=== PATIENT | male | born 1955 | race Caucasian/White ===

== ENCOUNTER 2016-07-10 06:00 | Day surgery (SDC) | payer MEDICAID ==
[~2016-07-10] VITALS: Ht 175.3 cm; Wt 95.3 kg
[~2016-07-10 06:00] MED LIST: NIASPAN500 MG PO; SAW PALMETTO450 MG PO
[2016-07-10 06:21] VITALS: BP 121/78; Ht 175.3 cm; Wt 95.3 kg
--- NOTE | 2016-07-10 09:13 | NUR ---
DMITRIY CHILDRESS TO ROOM
--- NOTE | 2016-07-10 11:39 | NUR ---
3025 POST HERNIA REPAIR AND LIPOMA REMOVAL. SLOW TO MOVE FROM STRETCHER TO BED. AWAKE AND RESP EVEN AND NONLABORED. DENIES NAUSEA. HAS DRESING TO RT FLANK C/D/I NO BLEEDING. HAS BULKY DRESSING TO HERNIA SITE AND ABDOMINAL BINDER ON.PAIN SOME BETTER AFTER DILAUDID.
--- NOTE | 2016-07-10 12:23 | NUR ---
1205 FULL LIQUIDS ORDERED TOLERATINF WATER. ABDOMINAL BINDER ON.
--- NOTE | 2016-07-10 12:56 | NUR ---
1235 TAKING IN SOME FULL LIQUIS. ENCOURAGED TO MOVE AROUND AND IV FLUIDS INFUSING RT ARM NO REDNESS OR SWELLING. ALSO ENCOURAGED TO COUGH AND DEEP BREATHE.
--- NOTE | 2016-07-10 14:15 | NUR ---
1335 UP TO THE BR AND VOIDED. BACK TO BED.
--- NOTE | 2016-07-10 14:16 | NUR ---
1350 IV DCD CATHETER INTACT. WENT OVER DISCHARGE INSTRUCTIONS AND TOLD NO LIFTING OR STRAINING AND MAY NEED A STOOL SOFTENER OR SOMETHING TO HELP GO TO THE BATHROOM. GAVE HERNIA DISCHARGE INSTRUCTION SHEET AND DENIES NEED FOR PAIN MEDS. SCRIPT GIVEN.
--- NOTE | 2016-07-10 14:17 | NUR ---
1405 TO HOME VIA W/C WITH FAMILY.
--- NOTE | 2016-08-20 10:17 | HP ---
PATIENT: CONCETTA ALICEA MEDICAL RECORD: [id number] ACCOUNT: [id number] LOCATION:[facility] : 57 ADMISSION DATE: 07/10/16 HISTORY AND PHYSICAL EXAMINATION CHIEF COMPLAINT: Umbilical hernia and also lipoma. HISTORY OF PRESENT ILLNESS: The patient is here for a laparoscopic umbilical hernia repair as well as excision of a right flank lipoma. In the holding area, the patient was able to localize the lipoma for me, which had ill-defined margins. The risks, possible complications and alternatives to procedure were explained to the patient. He elects to proceed. PAST MEDICAL AND SURGICAL HISTORY: Hyperlipidemia. HOME MEDICATIONS: Niacin. ALLERGIES: No known drug allergies. SOCIAL HISTORY: Nonsmoker. REVIEW OF SYSTEMS: Negative for coronary artery disease, hypertension. Negative for CVA or seizures. Negative for diabetes or thyroid problems. Review of systems is negative other than as is described above. PHYSICAL EXAMINATION: GENERAL: The patient does not appear acutely ill. He does not appear chronically ill. VITAL SIGNS: Reviewed. HEAD: External ears appear normal. EYES: Extraocular movements are intact. NECK: Trachea is midline. CHEST: No intercostal retractions. PULMONARY: Nonlabored, no stridor. ABDOMEN: Umbilical hernia which is partially reducible at least, also abdominal wall rubbery subcutaneous mass is somewhat movable in the right flank. IMPRESSION: 1. Symptomatic umbilical hernia. 2. Probable right flank/right upper quadrant lipoma. PLAN: As described above. TRANSINT:[id number] Voice Confirmation ID: [id number] DOCUMENT ID: [id number] HISTORY AND PHYSICAL [id number] CONCETTA ALICEA ROBERT MD at 1017 CC: ZOILA HODGES DO [id number] DICTATION DATE: 07/10/16 1025 MOLECULAR BIOLOGY SCIENTIST: 07/10/16 1205 [facility] 07/10/16 [place] [id number]
--- NOTE | 2016-08-20 10:17 | OP ---
PATIENT NAME: CONCETTA ALICEA MEDICAL RECORD: [id number] :57 LOCATION:D.OPS ADMISSION DATE: SURGEON: ZOILA CHAVARRIA MD DATE OF OPERATION: 07/10/2016 PREOPERATIVE DIAGNOSES: 1. Symptomatic umbilical hernia. 2. Subcutaneous mass of the right lateral abdominal wall. POSTOPERATIVE DIAGNOSES: 1. Symptomatic incarcerated umbilical hernia. The incarcerated contents included preperitoneal fat. 2. Right abdominal wall subcutaneous lipoma, which was an intermuscular lipoma PROCEDURES: 1. Laparoscopic incarcerated umbilical hernia repair with a Ventralight ST mesh utilizing the NoveltyLab PS positioning system. 2. Excision of intermuscular lipoma of the abdominal wall, right. SURGEON: Zoila Chavarria MD REHAB LIAISON: None. BLOOD LOSS: Minimal. ANESTHESIA: General. COMPLICATIONS: None. The risks, possible complications and alternatives to procedure were explained to the patient. He elects to proceed. OPERATIVE COURSE: The patient was conveyed to the operating room electively on 07/10/2016. General anesthesia was induced by the anesthesia staff. The abdomen was sterilely prepped and draped. A transverse incision was accomplished in the left upper quadrant. A Veress needle was inserted through the skin randy into the peritoneal cavity. CO2 insufflation was begun. Once a sufficient pneumoperitoneum had been achieved, a 12-mm trocar was inserted through an incision in the left upper quadrant. Under direct internal vision utilizing a television camera, two 5-mm trocars were inserted in the right side of the abdomen. One 5-mm trocar was inserted in the left lower quadrant. During insertion of the Veress needle and all trocars, there appeared to have been no injury to the bowels, any intraperitoneal or retroperitoneal structures. Utilizing the Harmonic scalpel, I cauterized and took down the falciform ligament. I then took down the anterior portion of the triangular ligament of the liver. Preperitoneal fat was excised in a piecemeal fashion. A prevesicular flap was created with the Harmonic scalpel. Intravenous methylene blue was given. There was no spillage of methylene blue and therefore, no evidence of a bladder injury. Incarcerated preperitoneal fat was reduced in its entirety. I then sharply cleaned some preperitoneal fat from around the hernia defect. A small skin randy was accomplished cephalad to the hernia defect. I advanced a laparoscopic suture passer. I then loaded a Ventralight ST mesh. I advanced it down through OPERATIVE REPORT [id number] CONCETTA ALICEA the 12-mm trocar site. I then unrolled it. With the laparoscopic suture grasper, I grasped the end of the tubing. I brought the tubing out through the abdominal wall. I then cut the tubing. It was attached to the inflation device and then inflated. It inflated nicely. The cephalad-caudad dimension was the dimension with the greatest length. Circumferential tacking utilizing a tacking device was accomplished, and then the herniorrhaphy was completed with the SorbaFix Tacker. The Echo PS positioning system was then removed in its entirety. I irrigated and aspirated. There was no bleeding. I pulled the omentum down over the small bowel. The 12-mm trocar was removed. The muscle at the 12-mm trocar site was closed with a single 0 Vicryl suture utilizing the Antwan-Kit suture closure device. The other trocars were removed. The trocar sites were closed with intracuticular 3-0 Vicryls. A transverse incision was accomplished in the left side of the abdomen laterally. I dissected down to lipomatous tissue, which was pale in color and came out in a piecemeal fashion. It appeared different from a regular subcutaneous adipose tissue. I used a muscle spreading technique rather than a muscle splitting technique. This was an intermuscular lipoma, so it will be at higher risk for a recurrence. Eladio was added to the wound for additional hemostasis. The subdermis was approximated with interrupted 3-0 Vicryls. The skin was approximated with a running intracuticular 3-0 Vicryl. Sterile dressings were applied. The patient was then extubated and conveyed to postanesthesia care unit where he was in stable condition. TRANSINT:[id number] Voice Confirmation ID: [id number] DOCUMENT ID: [id number] ZOILA CHAVARRIA MD at 1017 CC: [id number] DICTATION DATE: 07/13/162133 DOCUMENT MANAGEMENT ANALYST: 07/13/16 2309 [facility] 07/10/16 [place] [id number] [place] [id number]
== END 2016-07-10 13:05 | disposition home or self-care (01) ==
LOC: D.OPS 06:00 → D.PAN 08:00 → D.OPS 08:00 → D.PAN 08:50 → D.OPS 13:05
DX: K42.0 Umbilical hernia with obstruction, without gangrene (principal); D17.9 Benign lipomatous neoplasm, unspecified; E78.5 Hyperlipidemia, unspecified; Z79.899 Other long term (current) drug therapy

== ENCOUNTER 2016-07-14 06:59 | Inpatient (IN) | payer MEDICAID ==
[~2016-07-14] VITALS: Ht 175.3 cm; Wt 95.3 kg
[2016-07-14 08:03] LABS: BASOPHILS 0.1 % (0.0-2.0); EOSINOPHILS 0.4 % (0-7); IMMATURE GRANULOCYTES 0.3 % (0-5); LYMPHOCYTES 4.9 % (15-50); MCH 31.9 pg (26.0-34.0); MCV 93.8 fL (80.0-100.0); MONOCYTES 8.6 % (2-11); NEUTROPHILS 85.7 % (40-80); PLATELET COUNT 286 10x3/uL (130-400); RBC 5.01 10x6/uL (4.20-6.10); RDW 12.9 % (11.5-14.5); WBC 13.9 10x3/uL (4.8-10.8)
[2016-07-14 08:13] LABS: ALKALINE PHOSPHATASE 69 U/L (46-116); ALT (SGPT) 39 U/L (10-68); BILIRUBIN - TOTAL 0.74 mg/dL (0.2-1.3); CALC OSMOLALITY 278 mosm/kg (275-300); CALCIUM 10.1 mg/dL (8.5-10.1); CHLORIDE - SERUM 98 mmol/L (98-107); CREATININE - SERUM 0.9 mg/dL (0.6-1.3); GLUCOSE 137 mg/dL (74-106); POTASSIUM - SERUM 3.7 mmol/L (3.5-5.1); PROTEIN - SERUM 6.8 g/dL (6.4-8.2); SODIUM 138 mmol/L (136-145); UREA NITROGEN 15 mg/dL (7-18); eGFR NON AFRICAN AMERICAN > 90 mL/min (90-120)
--- NOTE | 2016-07-14 10:59 | NUR ---
Patient Name: CONCETTA TAVERAS Admission Status: ER Accout number: [id number] Admission Date: 07-14-2016 : 1955 Admission Diagnosis: Ileus Attending: MIKE Current LOS: 1 Anticipated DC Date: 07/17/16 Planned Disposition: Return home with spouse. Primary Insurance: [facility] [employer] JUDITH Discharge Planning Comments: CM met with patient to completed initial dc planning assessment. Consent given by patient to complete assessment. Patient reports he lives at home with his . He is independent in his care at home. He does not use assistive devices for ambulatory aide. He does not have home health or use any other community resources. At this point he feels he will return home independently without discharge needs. He feels this is a safe discharge plan. Cm will continue to follow and assist with dc plans/needs. Pediatrician Active Practice: Janine Mcguire Is the patient Alert and Oriented? Yes * How many steps to enter\exit or inside your home? 3 * PCP Dr. Chen * Pharmacy [facility] * Preadmission Environment Home with Family * ADLs Independent * Equipment None * List name and contact numbers for known caregivers / representatives who currently or will assist patient after discharge: Paula Taveras - spouse - [phone] * Community resources currently utilized None * Additional services required to return to the preadmission environment? No * Can the patient safely return to the preadmission environment? Yes * Has this patient been hospitalized within the prior 30 days at any hospital? No
--- NOTE | 2016-07-14 11:25 | NUR ---
RECEIVED PATIENT TO ROOM 2217 WITH C/O NAUSEA. MEDICATED. IV IS PATENT TO FLUSH, WITHOUT REDNESS OR SIGNS OF INFILTRATION. HE IS SETTLED IN TO HIS BED, IVF INFUSING PER ORDERS. NGT CLAMPED AT THIS TIME. HE IS IN THE MIDDLE OF A BOWEL SERIES SO THE NGT MUST REMAIN CLAMPED PER DETAIL SUPERVISOR. IS AT THE BEDSIDE. HE DENIES PAIN AT THIS TIME.
--- NOTE | 2016-07-14 12:35 | NUR ---
PATIENT'S IVF INFUSING, ZOFRAN INITIATED. HE C/O PAIN AT A 4 AT THIS TIME. HIS MAIN CONCERN IS THE DISCOMFORT FROM THE NGT. IT REMAINS CLAMPED. THE BOWEL SERIES CONTINUES, TECH EXPECTED BACK AT 1330 TO COMPLETE THE SERIES.
--- NOTE | 2016-07-14 13:30 | NUR ---
PATIENT SITTING UP ON THE BEDISDE VOMITING INTO A BLUE GRADUATED BAG. HE'S PUT OUT 600CC, NEW BAG GIVEN AND 400CC VOMITED UP. HE HAS SOME ON HIS COVERS WELL. IT IS GREEN COLORED LIQUID. PAGED DR. CHAVARRIA AND ASSISTED HIM TO CLEAN UP.
--- NOTE | 2016-07-14 13:45 | NUR ---
HOOKED UP TO WALL LIS. IMMEDIATELY PULLED OUT 700CC.
--- NOTE | 2016-07-14 16:40 | NUR ---
PATIENT BECAME NAUSEATED SUDDENLY AND BEGAN VOMITING INTO HIS BLUE BAG. TURNED THE SUCTION ON WALL UP TO HIGH AND PULLED ANOTHER 400CC OF GREEN FLUIDS OUT. PAGE PLACED TO DR. CHAVARRIA. CANISTER ON LIS WALL CHANGED.
--- NOTE | 2016-07-14 16:51 | NUR ---
SPOKE WITH DR. CHAVARRIA. REPORTED NAUSEA/ VOMITING AND RETURN OF GASTRIC CONTENTS TO THE WALL SUCTION. INSTRUCTIONS TO FLUSH THE NGT RECEIVED.
--- NOTE | 2016-07-14 17:35 | NUR ---
MICROBIOLOGICAL LABORATORY TECHNICIAN INITIATED. FLUSHED THE PATIENT'S NGT WITH SALINWE AND TURNED THE WALL SUCTION TO HIGH TO PULL BACK. ABOTU 50CC RETURNED. NGT FLUSHED EASILY
--- NOTE | 2016-07-14 18:24 | NUR ---
FLUSHED THE NGT EASILY WITH 30CC OF NS. TURNED THE SUCTION UP TO HIGH, 50CC RECEIVED BACK. PATIENT CONTINUES TO FEEL NAUSEATED..
--- NOTE | 2016-07-14 20:00 | NUR ---
ASSESSMENT PER FLOWSHEET. NGT PATENT AND CONNECTED TO LIWS WITH PALE GREEN SECRETIONS RETURNED. IV PATENT LEFT HAND OF D51/2NS W/40MEQ KCL INFUSING AT 125CC'S/HR ZOFRAN GTT PATENT AND INFUSING AT 4.6CC'S/HR. SITE CLEAR. DILAUDID LIVESTOCK COMMISSION AGENT IN USE WITH SETTINGS AT 0.2MG Q10MIN W/ NO L/O.ABDOMEN DISTENDED WITH HYPOACTIVE BOWEL SOUNDS. PT HAVING HICCUPS. AT BEDSIDE.
[2016-07-14 20:05] VITALS: BMI 31.0
[2016-07-14] MEDS ORDERED: HYDROCODON-ACE1 EAC7 PO (20:11)
[2016-07-14] MEDS ORDERED: IBUPROFEN400 MG PO (20:11)
[2016-07-14 21:00] VITALS: BP 121/72
--- NOTE | 2016-07-14 21:00 | NUR ---
MEDS GIVEN PER AUG. FEW PO ICE CHIPS GIVEN TO PATIENT TO MOISTEN HIS MOUTH.
--- NOTE | 2016-07-14 22:30 | NUR ---
RESTING QUIETLY RESPIRATIONS WITH EASE AND UNLABORED.
[2016-07-14 23:51] LABS: APPEARANCE CLEAR (CLEAR); BACTERIA MODERATE /hpf (NONE SEEN); BILIRUBIN NEGATIVE (NEGATIVE); COLOR DK YELLOW (YELLOW); EPITHELIAL CELLS OCC /hpf (0-5); GLUCOSE NEGATIVE (NEGATIVE); HYALINE CAST OCC /lpf (NONE SEEN); KETONE NEGATIVE (NEGATIVE); LEUKOCYTE ESTERASE TRACE (NEGATIVE); MUCUS >1+ /lpf (NONE SEEN); NITRITE NEGATIVE (NEGATIVE); PH 5.5 (5.0-6.0); PROTEIN NEGATIVE (NEGATIVE); SPECIFIC GRAVITY 1.015 (1.005-1.020); UROBILINOGEN NORMAL (NORMAL); WHITE CELLS - URINE 0-5 /hpf (0-5)
[2016-07-15 01:00] VITALS: BP 103/65
--- NOTE | 2016-07-15 01:13 | NUR ---
EYES CLOSED RESPIRATIONS WITH EASE AND UNLABORED.
[2016-07-15 05:00] VITALS: BP 103/70
--- NOTE | 2016-07-15 07:15 | NUR ---
AWAKE ALERT COLOR ADQ SKIN WARM AND DRY CONT NPO N/G INTACT TO LWS RET DARK BROWN AT PRESENT.
[2016-07-15 08:08] VITALS: BP 121/82
--- NOTE | 2016-07-15 09:00 | NUR ---
VOIDING FREELY PER URINAL AT PRESENT N/G CONT TO LWS AT PRESENT.
[2016-07-15 10:21] LABS: BASOPHILS 0.3 % (0.0-2.0); EOSINOPHILS 1.6 % (0-7); HEMATOCRIT 46.8 % (42.0-54.0); HEMOGLOBIN 15.6 g/dL (13.5-17.5); IMMATURE GRANULOCYTES 0.1 % (0-5); LYMPHOCYTES 13.6 % (15-50); MCH 32.2 pg (26.0-34.0); MCHC 33.3 g/dL (31.0-37.0); MEAN PLATELET VOLUME 9.8 fL (7.4-10.4); MONOCYTES 13.3 % (2-11); NEUTROPHILS 71.1 % (40-80); PLATELET COUNT 290 10x3/uL (130-400); RBC 4.85 10x6/uL (4.20-6.10); RDW 13.3 % (11.5-14.5)
[2016-07-15 10:26] LABS: MCV 96.5 fL (80.0-100.0); WBC 7.7 10x3/uL (4.8-10.8)
[2016-07-15 10:36] LABS: ALBUMIN 2.8 g/dL (3.4-5.0); ANION GAP 7.7 mmol/L (8-16); BILIRUBIN - TOTAL 1.1 mg/dL (0.2-1.3); CALCIUM 8.8 mg/dL (8.5-10.1); CARBON DIOXIDE 35.8 mmol/L (21.0-32.0); CREATININE - SERUM 1.2 mg/dL (0.6-1.3); MAGNESIUM - SERUM 2.4 mg/dL (1.8-2.4); PHOSPHOROUS 4.3 mg/dL (2.5-4.9); POTASSIUM - SERUM 4.5 mmol/L (3.5-5.1); PRE-ALBUMIN 15.9 mg/dL (18.0-35.7); PROTEIN - SERUM 6.5 g/dL (6.4-8.2)
--- NOTE | 2016-07-15 11:00 | NUR ---
HOB UP FOR COMFORT AT BEDSIDE N/G CONT TO LWS MEAGHAN CLINTON AT PRESENT.
[2016-07-15 11:52] VITALS: BP 114/72
[2016-07-15 12:52] VITALS: Ht 175.3 cm; Wt 95.3 kg
--- NOTE | 2016-07-15 13:00 | NUR ---
CONT WAITING ON C-TSCAN AT PRESENT N/G CLAMPED AT PRESENT AT BEDSIDE AT PRESENT.
--- NOTE | 2016-07-15 14:27 | NUR ---
QUIET IN ROOM AT PRESENT N/C AT PRESENT CONT NPO N/G IN PLACE AT PRESENT.
--- NOTE | 2016-07-15 15:30 | NUR ---
RET FROM X-RAY VIA CHAIR AT PRESENT.
[2016-07-15 15:40] VITALS: BP 111/67
--- NOTE | 2016-07-15 16:33 | NUR ---
QUIET IN ROOM AT PRESENT DENIES ANY NEEDS AT THIS TIME.
--- NOTE | 2016-07-15 18:42 | NUR ---
VS N/G TUBE ADVANCED PER MD FELI CARPENTER.
[2016-07-15 20:00] VITALS: BP 118/63
--- NOTE | 2016-07-15 20:00 | NUR ---
ASSESSMENT PER FLOWSHEET. NGT PATENT AND CONNECTED TO LIWS WITH GREEN DRAINAGE. IV PATENT LEFT HAND OF D51/2NS W/40MEQ KCL INFUSING AT 75CC'S/HR PROCAL AT 50CC'S/HR AND ZOFRAN GTT AT 4.7CC'S/HR. DATA PROCESSING SUPERVISOR OF DILAUDID IN USE WITH SETTINGS AT 0.2MG Q10MIN NO L/O
--- NOTE | 2016-07-15 22:00 | NUR ---
MEDS GIVEN PE MAR.
[2016-07-16] VITALS: BP 118/62
--- NOTE | 2016-07-16 | NUR ---
EYES CLOSED [id number] WITH EASE AND UNLABORED.
[2016-07-16 05:00] VITALS: BP 109/69
--- NOTE | 2016-07-16 05:30 | NUR ---
AMBULATED IN HALLWAY WITH .
[2016-07-16 08:14] VITALS: BP 134/77
--- NOTE | 2016-07-16 10:15 | NUR ---
PT SEEN AND ASSESSED EARILER. NO COMPLAINTS AT PRESENT. STATES BLENDING TANK HELPER IS HELPING WITH PAIN CONTROL WHEN NEEDED. BOWEL SOUNDS HYPOACTIVE. NG DRAINING GREEN LIQ. INCISIONS NOTED X 4 ALL CLEAN AND DRY/INTACT. HAS BEEN AMBULATING IN [place]. REFUSES SCDS AT PRESENT.
[2016-07-16 11:45] VITALS: BP 122/64
[2016-07-16 16:23] VITALS: BP 139/76
--- NOTE | 2016-07-16 18:39 | NUR ---
PT HAS AMBULATED SEVERAL TIMES IN HALLWAY. NO BM TODAY. HICCUPS FINALLY GONE. AT BEDSIDE. CALL LIGHT IN REACH
--- NOTE | 2016-07-16 19:40 | NUR ---
RECIEVED SHIFT REPORT. PT IS LYING IN BED. ALERT AND ORIENTED AND ABLE TO VERBALIZE NEEDS. IV IS PATENT AND FLUIDS ARE RUNNING PER ORDER. PT IS AMBUTLATORY BUT WAS INSTRUCTED TO CALL FOR ANY ASSISTANCE NEEDED. PT IS REFUSING SCD'S AT THIS TIME. NGT TO LEFT NARE PATENT AND CONNECTED TO LIWS. PT STATES PAIN IS 4/10 WITH ANTHROPOLOGY INSTRUCTOR PUMP. NO NEEDS ARE VERBALIZED AT THIS TIME. WILL CONTINUE TO MONITOR. SIDE RAILS ARE UP X 2. BED IS IN LOWEST POSITION. CALL LIGHT IS WITHIN REACH.
[2016-07-16 20:00] VITALS: BP 108/79
--- NOTE | 2016-07-16 21:02 | NUR ---
SHIFT ASSESSMENT COMPLETED. NIGHT MEDS GIVEN WITH NO PROBLEM. PT STILL WITH C/O HICCUPS. ADMINISTERED PRESCRIBED PRN THORAZINE IM PER ORDER. DENIES FURTHER NEEDS. WILL MONITOR. SIDE RAILS X 2. BED LOW. CALL LIGHT IN REACH.
[2016-07-17] VITALS: BP 124/71
[2016-07-17 05:19] LABS: BASOPHILS 0.2 % (0.0-2.0); EOSINOPHILS 2.1 % (0-7); HEMATOCRIT 44.2 % (42.0-54.0); HEMOGLOBIN 14.6 g/dL (13.5-17.5); LYMPHOCYTES 9.7 % (15-50); MCH 31.8 pg (26.0-34.0); MCV 96.3 fL (80.0-100.0); MEAN PLATELET VOLUME 9.5 fL (7.4-10.4); MONOCYTES 15.1 % (2-11); NEUTROPHILS 71.9 % (40-80); PLATELET COUNT 290 10x3/uL (130-400); RBC 4.59 10x6/uL (4.20-6.10); RDW 13.1 % (11.5-14.5); WBC 9.1 10x3/uL (4.8-10.8)
[2016-07-17 05:41] LABS: ALBUMIN 2.3 g/dL (3.4-5.0); ANION GAP 10.5 mmol/L (8-16); BILIRUBIN - TOTAL 2.57 mg/dL (0.2-1.3); CALCIUM 8.4 mg/dL (8.5-10.1); CARBON DIOXIDE 30.3 mmol/L (21.0-32.0); CREATININE - SERUM 1.1 mg/dL (0.6-1.3); MAGNESIUM - SERUM 2.3 mg/dL (1.8-2.4); POTASSIUM - SERUM 4.8 mmol/L (3.5-5.1); PROTEIN - SERUM 6.1 g/dL (6.4-8.2)
[2016-07-17 05:42] LABS: PHOSPHOROUS 3.2 mg/dL (2.5-4.9)
[2016-07-17 08:20] VITALS: BP 109/65
--- NOTE | 2016-07-17 08:42 | NUR ---
PATIENT UP AMBULATING IN HALLWAY AT THIS TIME WITH . NO PROBLEMS NOTED.
[2016-07-17 11:51] VITALS: BP 114/51
--- NOTE | 2016-07-17 12:29 | NUR ---
NUTRITION MONITORING & EVAL CHART REVIEWED. PT REMAINS NPO AT THIS TIME. WILL CONTINUE TO MONITOR PT PROGRESS, DIET ADVANCEMENT. RD FOLLOWING
[2016-07-17 16:26] VITALS: BP 127/74
--- NOTE | 2016-07-17 17:40 | NUR ---
PATIENT UP AMBULATING IN [place] AGAIN AT THIS TIME. NO COMPLAINTS. FAMILY AT BEDSIDE.
--- NOTE | 2016-07-17 18:45 | NUR ---
PATIENT IN BED WITH IV INTACT. NO COMPLAINTS. NGT TO LIWS INTACT. FAMILY AT BEDSIDE. CALL LIGHT WITHIN REACH.
--- NOTE | 2016-07-17 20:30 | NUR ---
PATIENT IN SEMI-FOWLERS POSTION, DOES NOT NEED ANYTHING AT THIS TIME.
--- NOTE | 2016-07-18 07:00 | NUR ---
REPORT RECIEVED ASSUMED CARE. PATIENT IN BED WITH IV INTACT. NO COMPLAINTS. CALL LIGHT WITHIN REACH.
[2016-07-18 07:50] VITALS: BP 117/67
--- NOTE | 2016-07-18 08:01 | NUR ---
PT PASSED 5-6 HARD SMALL BALLS OF STOOL. NO NAUSEA VOICED. AMBULATING IN [place]
[2016-07-18 12:38] VITALS: BP 114/75
[2016-07-18 15:59] VITALS: BP 120/72
--- NOTE | 2016-07-18 18:45 | NUR ---
PATIENT IN BED RESTING QUIETLY WITH NO COMPLAINTS. IV AND NGT INTACT. CALL LIGHT WITHIN REACH.
--- NOTE | 2016-07-18 20:32 | NUR ---
PATIENT USING RESTROOM WITH AT BEDSIDE. PATIENT STATED HE DOES NOT NEED ANYTHING AT THIS TIME.
[2016-07-18 21:00] VITALS: BP 102/67
[2016-07-19 01:00] VITALS: BP 121/71
[2016-07-19 05:00] VITALS: BP 114/83
--- NOTE | 2016-07-19 07:00 | NUR ---
REPORT RECIEVED ASSUMED CARE. PATIENT IN BED WITH IV INTACT. NO COMPLAINTS. CALL LIGHT WITHIN REACH.
[2016-07-19 08:33] VITALS: BP 121/71
--- NOTE | 2016-07-19 13:00 | NUR ---
PATIENT NGT REMOVED ORDERED BY DR. LEWIS. RESIDUAL LESS THAN 100. PATIENT TOLERATED WITH SMALL AMOUNT OF DISCOMFORT. IV INTACT. CALL LIGHT WITHIN REACH.
[2016-07-19 13:05] VITALS: BP 106/69
[2016-07-19 15:47] VITALS: BP 126/79
--- NOTE | 2016-07-19 18:55 | NUR ---
PATIENT IN BED WITH NO COMPLAINTS AT THIS TIME. IV INTACT. FAMILY AT BEDSIDE. CALL LIGHT WITHIN REACH.
--- NOTE | 2016-07-19 19:45 | NUR ---
PATIENT IN SEMI-FOWLERS POSTION. PATIENT COMPLAINT OF NAUSEA AND VOMITING. PATIENT STATED HE WILL TRY EATING MORE LATER. PATIENT DENIES OTHER NEEDS AT THIS TIME. PATIENT'S BED IS IN THE LOWEST POSITION AND CALL LIGHT IS WITHIN REACH. IS AT BEDSIDE.
[2016-07-19 21:00] VITALS: BP 107/71
[2016-07-20 00:45] VITALS: BP 106/63
[2016-07-20 05:00] VITALS: BP 118/71
--- NOTE | 2016-07-20 07:00 | NUR ---
REPORT RECIEVED ASSUMED CARE. PATIENT IN BED WITH IV INTACT. NO COMPLAINTS. ROD;L LIGHT WITHIN REACH.
[2016-07-20 09:42] VITALS: BP 117/74
[2016-07-20 17:20] VITALS: BP 122/72
--- NOTE | 2016-07-20 18:45 | NUR ---
PATIENT SITTING UP IN BED. STATED HE FEELS BETTER THAN HE DID EARLIER. THORAZINE HELPED WITH HICCUPS. STATED ALSO HAD A BM THIS EVENING. NO COMPLAINTS AT THIS TIME. IV INTACT. FAMILY AT BEDSIDE. CALL LIGHT WITHIN REACH.
[2016-07-20 19:00] VITALS: BP 109/79
--- NOTE | 2016-07-20 21:25 | NUR ---
PATIENT RESTING IN BED. PRESENT. NO SIGNS OF DISTRESS NOTED. SCHEDULED MEDICATIONS GIVEN. DENIES NEEDS AT THIS TIME. BED LOW. CALL LIGHT IN REACH
[2016-07-21 04:00] VITALS: BP 117/69
[2016-07-21 05:19] LABS: BASOPHILS 0.5 % (0.0-2.0); EOSINOPHILS 2.1 % (0-7); IMMATURE GRANULOCYTES 4.3 % (0-5); LYMPHOCYTES 16.1 % (15-50); MCHC 32.6 g/dL (31.0-37.0); MCV 95.3 fL (80.0-100.0); MEAN PLATELET VOLUME 9.8 fL (7.4-10.4); MONOCYTES 7.7 % (2-11); NEUTROPHILS 69.3 % (40-80); RBC 4.51 10x6/uL (4.20-6.10); RDW 13.5 % (11.5-14.5); WBC 13.9 10x3/uL (4.8-10.8)
[2016-07-21 05:20] LABS: PLATELET COUNT 367 10x3/uL (130-400)
[2016-07-21 05:36] LABS: CALC OSMOLALITY 276 mosm/kg (275-300); CALCIUM 8.1 mg/dL (8.5-10.1); CARBON DIOXIDE 32.1 mmol/L (21.0-32.0); CHLORIDE - SERUM 99 mmol/L (98-107); GLUCOSE 99 mg/dL (74-106); POTASSIUM - SERUM 4.4 mmol/L (3.5-5.1); SODIUM 137 mmol/L (136-145); UREA NITROGEN 20 mg/dL (7-18); eGFR NON AFRICAN AMERICAN 81 mL/min (90-120)
--- NOTE | 2016-07-21 07:15 | NUR ---
AWAKE ALERT AMB IN HALLWAY WITH OCC HICCUPS NOTED AT PRESENT ABD BINDER IN PLACE AT PRESENT.
[2016-07-21 08:16] VITALS: BP 108/86
--- NOTE | 2016-07-21 09:00 | NUR ---
MEDS GIVEN FELI WELL AT PRESENT N/C AT PRESENT.
--- NOTE | 2016-07-21 10:00 | NUR ---
AMB IN HALLWAY WITH FELI WELL AT PRESENT .
--- NOTE | 2016-07-21 12:00 | NUR ---
WATCHING TV QUIETLY AT PRESENT DENIES ANY NEEDS AT PRESENT N/C AT PRESENT.
[2016-07-21 12:09] VITALS: BP 120/76
--- NOTE | 2016-07-21 14:00 | NUR ---
AMB IN HALLWAY WITH FELI WELL AT PRESENT.
[2016-07-21 15:37] VITALS: BP 107/98
--- NOTE | 2016-07-21 16:17 | NUR ---
ALERT AWAKE VISITORS AT BEDSIDE DENIES ANY NEEDS AT PRESENT.
--- NOTE | 2016-07-21 17:46 | NUR ---
STATUS REMAINS UNCHGD AT PRESENT.
[2016-07-21 19:00] VITALS: BP 105/73
--- NOTE | 2016-07-21 20:21 | NUR ---
PATIENT SITTING UP IN BED. NO SIGNS OF DISTRESS NOTED. SCHEDULED MEDICATION GIVEN. DENIES ANY NEEDS AT THIS TIME. PRESENT. BED LOW. CALL LIGHT IN REACH
[2016-07-22 04:00] VITALS: BP 98/61
[2016-07-22 08:09] VITALS: BP 119/72
--- NOTE | 2016-07-22 08:16 | NUR ---
CM REASSESSMENT NOTE: PATIENT IS DISCHARGING HOME TODAY. AT BEDSIDE AND WILL BE DRIVING PATIENT HOME. PATIENT DENIED HOME HEALTH OR OTHER NEEDS FOR DISCHARGE.
--- NOTE | 2016-07-22 11:06 | NUR ---
DISCHARGE INSTRUCTIONS COMPLETED WITH PATIENT AND FAMILY. D/C IV. PATIENT VERBALIZED UNDERSTANDING AND DENIES QUESTIONS.
--- NOTE | 2016-08-20 10:17 | HP ---
PATIENT: CONCETTA ALICEA MEDICAL RECORD: [id number] ACCOUNT: [id number] LOCATION:D.[facility] : 57 ADMISSION DATE: 07/14/16 HISTORY AND PHYSICAL EXAMINATION CHIEF COMPLAINT: Nausea. HISTORY OF PRESENT ILLNESS: The patient is nauseated. He has not vomited. He underwent laparoscopic umbilical hernia repair with mesh as well as an excision of abdominal wall lipoma last week. He states he has not felt good ever since surgery. His operation technically was an easy one to perform. There has been no hernia recurrence. He has no erythema around his incisions site. However, he does have some bruising around the incisions. His abdomen is distended. It is tympanitic. The flat and upright views of the abdomen to were read out as an ileus versus a small-bowel obstruction. I think it is more likely that he has a small-bowel obstruction. Eating and drinking exacerbates as does palpation. Nothing alleviates. We are going to place an NG tube. He is hiccupping. I think that this is a prelude to some vomiting. The patient had a small BM after an enema. REVIEW OF SYSTEMS: No fever, no chest pain. The review of systems is negative other than as is described above. PAST MEDICAL HISTORY AND PAST SURGICAL HISTORY: As described above, umbilical hernia repair. He is Mandaen. SOCIAL HISTORY: . HOME MEDICATIONS: He has been on hydrocodone. ALLERGIES: No known drug allergies. PHYSICAL EXAMINATION: GENERAL: The patient appears acutely ill. He does not appear chronically ill. VITAL SIGNS: Reviewed. HEAD: External ears appear normal. EYES: Extraocular movements are intact. NECK: Trachea is midline. CHEST: No intercostal retractions. PULMONARY: Decreased breath sounds at bases. Shallow respirations. ABDOMEN: As described above. No peritonitis to percussion. EXTREMITIES: No peripheral cyanosis. INTEGUMENT: No rash. Bruising around some of the trocar sites. IMPRESSION: Postoperative small-bowel obstruction. PLAN: NG suction. IV hydration. Antiemetic. Small bowel follow-through. TRANSINT:[id number] Voice Confirmation ID: [id number] DOCUMENT ID: [id number] HISTORY AND PHYSICAL [id number] CONCETTA ALICEA, ZOILA CHILDRESS at 1017 CC: [id number] DICTATION DATE: 07/14/16 09 REPORTING ANALYST: 07/14/16 1002 DIS IN 07/22/16 [facility] [address] [place] [address]
--- NOTE | 2016-08-20 10:18 | DS ---
PATIENT:CONCETTA ALICEA :57 MEDICAL RECORD: [id number] DISCHARGE SUMMARY ADMISSION DATE: 07/14/16 DISCHARGE DATE: 07/22/16 PREOPERATIVE DIAGNOSIS: Early postoperative small-bowel obstruction. PROCEDURE: 1. Recent laparoscopic incarcerated umbilical hernia repair with mesh. 2. Recent excision of abdominal wall lipoma. HOSPITAL COURSE: The patient was admitted through the Emergency Room. He underwent nasogastric suction. We tried a small bowel follow-through but the patient had a lot of vomiting and we had to discontinue the small-bowel follow-through prematurely in order to place the nasogastric tube back to suction in order to give him some relief. Once his abdomen became less tight and he was not vomiting, we completed another small-bowel follow-through, which I believe was a therapeutic. The patient began having bowel movements. We advanced his diet up to a soft diet. He is being dismissed home. He is not having any nausea currently. No vomiting. He is having bowel movements. He is being dismissed home on Finger for pain as well as Zofran 4 mg ODT. I will see him in the office in 2-3 weeks. TRANSINT:[id number] Voice Confirmation ID: [id number] DOCUMENT ID: [id number] ZOILA CHAVARRIA MD at 1018 CC: [id number] DICTATION DATE: 07/22/16 0843 CARPENTER FOREMAN: 07/22/16 0927 DIS IN 07/22/16 [facility] [address] [place] [address]
== END 2016-07-22 11:10 | disposition home or self-care (01) | DRG 395 ==
LOC: D.ER 06:59 → D.MS 08:54
PROVIDERS: Emergency Medicine; Surgery; ADMIT Surgery
DX: K91.3 Postprocedural intestinal obstruction (principal); Y83.9 Surgical procedure, unspecified as the cause of abnormal reaction of the patient, or of later complication, without mention of misadventure at the time of the procedure

== ENCOUNTER 2020-02-10 05:50 | Day surgery (SDC) | payer MEDICAID ==
[~2020-02-10] VITALS: Ht 175.3 cm; Wt 101.4 kg
[~2020-02-10 05:50] MED LIST changes: +HYDROCODON-ACE1 EAC7 PO; +IBUPROFEN400 MG PO
[2020-02-10 07:42] VITALS: BP 123/77; Ht 175.3 cm; Wt 101.4 kg
[2020-02-10 08:47] LABS: HEMATOCRIT 47.7 % (42.0-54.0); HEMOGLOBIN 15.9 g/dL (13.5-17.5); MCH 31.7 pg (26.0-34.0); MCHC 33.3 g/dL (31.0-37.0); MCV 95.2 fL (80.0-100.0); MEAN PLATELET VOLUME 9.9 fL (7.4-10.4); RBC 5.01 10x6/uL (4.20-6.10); RDW 13.6 % (11.5-14.5); WBC 6.7 10x3/uL (4.8-10.8)
--- NOTE | 2020-02-10 16:52 | NUR ---
[address] CHAVARRIA AT BEDSIDE 1400 FLAGYL CALLED INTO PHARMACY. IV D/C'D WITH CANNULA INTACT, PRESSURE APPLIED AND DRSG PLACED. DISCHARGE INSTRUCTIONS GIVEN. PT AND VERBALIZED AN UNDERSTANDING. DISCHARGE CRITERIA MET AND DISCHARGED WITHOUT C/O
--- NOTE | 2020-02-20 15:36 | HP ---
PATIENT: CONCETTA ALICEA MEDICAL RECORD: [id number] ACCOUNT: [id number] [facility] 57 ADMISSION DATE: 02/10/20 PCP: DECLAN HAYWARD MD HISTORY AND PHYSICAL EXAMINATION CHIEF COMPLAINT: Here for endoscopy. HISTORY OF PRESENT ILLNESS: The patient is here for upper and lower endoscopy. The patient has fecal occult blood positivity. He has an uncle who had colon cancer. He does have gastroesophageal reflux disease. The risks, possible complications and alternatives to the procedure were explained to the patient. He elects to proceed. HOME MEDICATIONS: Niacin as well as saw palmetto. ALLERGIES: No known drug allergies. SOCIAL HISTORY: Nonsmoker. 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 REVIEW OF SYSTEMS: Negative for coronary artery disease or hypertension. Negative for CVA or seizures. PHYSICAL EXAMINATION: GENERAL: The patient does not appear acutely ill. He does not appear chronically ill. VITAL SIGNS: Reviewed. EARS: External ears appear normal. EYES: Extraocular movements are intact. NECK: Trachea is midline. CHEST: No intercostal retractions. PULMONARY: Nonlabored, no stridor. IMPRESSION: Fecal occult blood positivity. PLAN: Will be EGD and colonoscopy. TRANSINT:[id number] Voice Confirmation ID: [id number] DOCUMENT ID: [id number] ZOILA CHAVARRIA MD at 1536 CC: DECLAN HAYWARD [id number] DICTATION DATE: 02/10/20 0937 PARKING WORKER: 02/10/20 0945 [facility] 02/10/20 [place] [id number] [place] [address]
--- NOTE | 2020-03-06 15:11 | OP ---
PATIENT NAME: CONCETTA ALICEA MEDICAL RECORD: [id number] :57 LOCATION:D.OPS ADMISSION DATE: SURGEON: ASAF CHAVARRIA MD DATE OF OPERATION: 02/10/2020 PREOPERATIVE DIAGNOSIS: Fecal occult blood positivity. POSTOPERATIVE DIAGNOSES: 1. Fecal occult blood positivity. 2. Multiple colon polyps. 3. Colonic mass. PROCEDURES: 1. Esophagogastroduodenoscopy with gastric and duodenal biopsies. 2. Total colonoscopy to cecum. 3. Hot biopsy forceps polypectomies times 2. 4. Snare polypectomies times 2. 5. Endoscopic tattooing times 2. 6. Epinephrine injection times 3. 7. Snare biopsy times 1. SURGEON: Asaf Chavarria MD PHOTO OPTICS TECHNICIAN: None. BLOOD LOSS: Minimal. ANESTHESIA: IV sedation. COMPLICATIONS: None. The risks, possible complications and alternatives to the procedure were explained to the patient. He elects to proceed. ENDOSCOPIC COURSE: The patient was conveyed to endoscopy suite electively on 02/10/2020. IV sedation was induced by the anesthesia staff. A bite block was inserted. A gastroscope was inserted into the mouth. It advanced easily into the hypopharynx. The esophagus was easily intubated as were the stomach and duodenum. Upon withdrawal, retroflexed and angulus views were obtained. Duodenal biopsies were obtained. These were cold endoscopic biopsies. Gastric biopsies were obtained in the antrum. These were cold endoscopic biopsies to rule out Helicobacter pylori. The endoscope was then withdrawn under direct vision. The patient was turned 180 degrees and was placed in the Villar position. A digital rectal examination was performed. A colonoscope was inserted through the anus. It was easily advanced to the cecum. There was a large polyp at 50 cm. There was a mass at 20 cm that was very suspicious for an adenocarcinoma. Two hot biopsy forceps polypectomies were performed. These were sessile polyps. One of these polyps was marked with submucosal Alondra ink as a tattoo. This was a polyp at 50 cm. Two snare polypectomies were performed utilizing the coagulation setting and then the cut setting. At the snare polypectomy site, a preprocedural epinephrine was used in a submucosal fashion for post-procedural hemostasis. I then withdrew to 20 cm. There was a mass present. A snare biopsy of the mass was performed. I could not remove the entire mass. This OPERATIVE REPORT [id number] CONCETTA ALICEA appears to be an adenocarcinoma. Epinephrine was injected at the base of the polyp for post-procedural hemostasis. I also tattooed the polyp with submucosal Alondra ink distal to the mass. I then grasped the biopsy portion and withdrew it out through the anus. I readvanced the endoscope. I saw no further bleeding. The endoscope was then withdrawn under direct vision. A combination of normal imaging and narrow band imaging were utilized through the process. TRANSINT:[id number] Voice Confirmation ID: [id number] DOCUMENT ID: [id number] ASAF CHAVARRIA MD at 1511 CC: [id number] DICTATION DATE: 03/05/20 1636 DYE WINCH OPERATOR: 03/06/20 0225 [facility] 02/10/[id number] [place] [address]
== END 2020-02-10 14:02 | disposition home or self-care (01) ==
LOC: D.OPS 05:50
PROVIDERS: Anesthesiology; ATTEND Surgery
DX: R19.5 Other fecal abnormalities (principal); K63.5 Polyp of colon; K21.9 Gastro-esophageal reflux disease without esophagitis; Z80.0 Family history of malignant neoplasm of digestive organs

== ENCOUNTER 2020-02-28 13:12 | Inpatient (IN) | payer MEDICAID ==
[~2020-02-28] VITALS: Ht 175.3 cm; Wt 99.8 kg
[2020-02-29] VITALS (7 sets, daily range): BP systolic 109–137; BP diastolic 52–88; BMI 34.5; BMI 32.5
[2020-02-29 08:10] LABS: BASOPHILS 0.2 % (0-2); EOSINOPHILS 2.4 % (0-7); HEMATOCRIT 50.5 % (42.0-54.0); IMMATURE GRANULOCYTES 0.2 % (0-5); LYMPHOCYTES 23.8 % (15-50); MCH 31.9 pg (26.0-34.0); MCHC 33.7 g/dL (31.0-37.0); MCV 94.7 fL (80.0-100.0); MEAN PLATELET VOLUME 9.6 fL (7.4-10.4); MONOCYTES 8.8 % (2-11); NEUTROPHILS 64.6 % (40-80); PLATELET COUNT 256 10x3/uL (130-400); RBC 5.33 10x6/uL (4.20-6.10); RDW 13.2 % (11.5-14.5); WBC 6.4 10x3/uL (4.8-10.8)
[2020-02-29 08:21] LABS: INR 1.05 (0.85-1.17); PROTIME 13.6 SECONDS (11.6-15.0)
[2020-02-29 08:22] LABS: APTT 30.6 SECONDS (22.8-39.4)
[2020-02-29] MEDS ORDERED: FERROUS SULFAT325 MG PO (08:38)
--- NOTE | 2020-02-29 18:11 | NUR ---
PT ARRIVED TO THE ICU FLOOR VIA BED. PT IS AWAKE AND ALERT ON 2L OF O2. IV IS NOTED TO THE LEFT HAND INFUSING LACTATED RINGERS. EPIDURAL TO THE MID BACK IS NOTED WITH DRESSING CLEAN DRY AND INTACT. PATIENT DENIES ANY PAIN AT THIS TIME. FEET ARE UP AND HEAD IS DOWN BP IS NOTED TO BE 98/60. FOUR LAP SITES ON ABD ALL GLUED CLOSED AND STERI STRIPS ARE SEEN OVER THEM. THERE IS A HORIZONTAL INCISION ON THE LOWER ABD DRESSING IS CLEAN DRY AND INTACT. CALL LIGHT IS IN REACH AND BED IS IN THE LOWEST POSITION. PT DENIES ANY ADDITIONAL NEEDS AT THIS TIME
[2020-02-29 18:33] LABS: BASOPHILS 0.1 % (0-2); EOSINOPHILS 0.1 % (0-7); HEMATOCRIT 47.2 % (42.0-54.0); HEMOGLOBIN 15.6 g/dL (13.5-17.5); IMMATURE GRANULOCYTES 0.1 % (0-5); LYMPHOCYTES 3.9 % (15-50); MCH 31.5 pg (26.0-34.0); MCHC 33.1 g/dL (31.0-37.0); MCV 95.4 fL (80.0-100.0); MEAN PLATELET VOLUME 9.5 fL (7.4-10.4); MONOCYTES 3.6 % (2-11); NEUTROPHILS 92.2 % (40-80); PLATELET COUNT 226 10x3/uL (130-400); RBC 4.95 10x6/uL (4.20-6.10); RDW 13.4 % (11.5-14.5)
[2020-02-29 18:41] LABS: ALKALINE PHOSPHATASE 73 U/L (30-120); ALT (SGPT) 28 U/L (10-68); BILIRUBIN - TOTAL 0.53 mg/dL (0.2-1.3); CALC OSMOLALITY 283 mosm/kg (275-300); CALCIUM 8.1 mg/dL (8.5-10.1); CHLORIDE - SERUM 107 mmol/L (98-107); GLUCOSE 109 mg/dL (74-106); PROTEIN - SERUM 5.4 g/dL (6.4-8.2); SODIUM 142 mmol/L (136-145); UREA NITROGEN 12 mg/dL (7-18); eGFR NON AFRICAN AMERICAN 80 mL/min (90-120)
[2020-02-29 19:09] LABS: WBC 12.1 10x3/uL (4.8-10.8)
--- NOTE | 2020-02-29 19:24 | NUR ---
PT RESTING IN BED WITH EYES CLOSED. RESPIRATIONS EVEN AND UNLABORED. HE AROUSES EASILY WITH VERBAL STIMULI. HE HAS A FENTANYL EPIDURAL INFUSING. VSS. NO DISTRESS NOTED. PT DENIES PAIN OR NEEDS. BED IS LOW AND CALL LIGHT WITHIN REACH.
[2020-03-01] VITALS (9 sets, daily range): BP systolic 85–125; BP diastolic 49–71; Ht 175.3 cm; Wt 99.8 kg
--- NOTE | 2020-03-01 06:50 | NUR ---
DR. CHAVARRIA PAGED REGARDING PTS CURRENT BLOOD PRESSURE OF 80/50. PT DENIES FEELING LIGHT HEADED OR DIZZY. HE REPORTS THAT HE HAS BEEN TOLD BY HIS DOCTORS FOR A LONG TIME THAT HIS BLOOD PRESSURE RUNS ON THE LOWER SIDE. HE IS ALERT AND ORIENTED. DENIES PAIN OR NEEDS. HEART RATE IS 75 AND 02 SAT IS 96% ON 2L NC, RESPIRATIONS EVEN AND UNLABORED. HIS DRESSSINGS TO HIS ABDOMEN ARE CDI. BED IS LOW AND CALL LIGHT IN REACH.
--- NOTE | 2020-03-01 08:15 | NUR ---
SPOKE WITH UPDATE PROVIDED.
--- NOTE | 2020-03-01 09:45 | NUR ---
DRESSING TO LEFT HIP SATURATED. TOOK OFF DRESSING AND APPLIED CLEAN/NEW DRESSINGS TO BOTH INCISION SITES ON LEFT HIP/THIGH PER PHYSICIAN REQUEST.
--- NOTE | 2020-03-01 10:41 | NUR ---
SPOKE WITH AGAIN UPDATE PROVIDED.
--- NOTE | 2020-03-01 11:11 | HP ---
PATIENT: CONCETTA ALICEA MEDICAL RECORD: [id number] ACCOUNT: [id number] [id number] : 57 ADMISSION DATE: 02/29/20 PCP: DECLAN HAYWARD MD HISTORY AND PHYSICAL EXAMINATION History and physical addendum: HISTORY OF PRESENT ILLNESS: The patient has a worrisome polyp that has high-grade dysplasia as well as secondary lesion, which is an adenocarcinoma. I performed a laparoscopic ventral hernia repair on him in the past. I have seen him in the office before the procedure as well as after the procedure. He is Restoration, he will not accept blood. PAST MEDICAL AND SURGICAL HISTORY: Unchanged from the one on the chart. HOME MEDICATIONS: Please see the nursing list. ALLERGIES: No known drug allergies. PHYSICAL EXAMINATION: GENERAL: The patient does not appear acutely ill. He does not appear chronically ill. VITAL SIGNS: Reviewed. EARS: External ears appear normal. EYES: Extraocular movements are intact. NECK: Trachea is midline. CHEST: No intercostal retractions. PULMONARY: Nonlabored and no stridor. IMPRESSION: 1. Polyp with high-grade dysplasia. 2. Secondary adenocarcinoma. PLAN: Hand-assisted laparoscopic surgery with partial colectomy, possible partial colectomy times 2, possible partial colectomy, as well as excision of the polyp. Both areas have been tattooed. TRANSINT:[id number] Voice Confirmation ID: [id number] DOCUMENT ID: [id number] ZOILA CHAVARRIA MD at 1111 CC: [id number] DICTATION DATE: 02/29/20 1022 SET ILLUSTRATOR: 02/29/20 1053 ADM IN [facility] [address] [id number]
--- NOTE | 2020-03-01 11:35 | NUR ---
REC'D CALL FROM DR. CHAVARRIA WITH ORDERS TO MOVED PT TO FLOOR AT THIS TIME.
--- NOTE | 2020-03-01 12:47 | NUR ---
REPORT WAS CALLED AND GIVEN TO NURSE ON FLOOR FOR ROOM 2216. PT AWARE OF TRANSFER WELL . STABLE CONDITION UPON TRANSFER.
--- NOTE | 2020-03-01 13:31 | NUR ---
RECEIVED PATIENT FROM ICU VIA BED. ALERT AND ORIENTED. NO C/O PAIN, EPIDURAL INFUSING @ 7ML/HR. SITE PATENT WITHOUT REDNESS OR SWELLING. POD #1 HALS SIGMOID COLECTOMY, DRESSING C/D/I. NPO EXCEPT ICE CHIPS. ON 2L O2, NC. BEDREST. GALE CATHETER PRESENT, BLUE IN COLOR. IV TO LEFT HAND, NS INFUSING @ 125ML/HR. SITE PATENT WITHOUT REDNESS OR SWELLING. DENIES ANY NEEDS AT THIS TIME. CALL LIGHT IN REACH. WILL CONTINUE TO MONITOR.
--- NOTE | 2020-03-01 18:21 | NUR ---
A&O RESTING IN BED WITH EYES OPEN. NO C/O PAIN. NO S/S OF ACUTE DISTRESS NOTED. DENIES ANY NEEDS AT THIS TIME. CALL LIGHT IN REACH. WILL CONTINUE TO MONITOR.
[2020-03-02 09:07] VITALS: BP 142/74
[2020-03-02 11:44] LABS: ALBUMIN 2.6 g/dL (3.4-5.0); ALKALINE PHOSPHATASE 62 U/L (30-120); ALT (SGPT) 25 U/L (10-68); BILIRUBIN - TOTAL 0.61 mg/dL (0.2-1.3); CARBON DIOXIDE 25.1 mmol/L (21.0-32.0); CHLORIDE - SERUM 107 mmol/L (98-107); CREATININE - SERUM 0.8 mg/dL (0.6-1.3); GLUCOSE 100 mg/dL (74-106); MAGNESIUM - SERUM 1.9 mg/dL (1.8-2.4); POTASSIUM - SERUM 4.3 mmol/L (3.5-5.1); PROTEIN - SERUM 5.7 g/dL (6.4-8.2); SODIUM 140 mmol/L (136-145); eGFR NON AFRICAN AMERICAN > 90 mL/min (90-120)
[2020-03-02 11:45] LABS: CALC OSMOLALITY 280 mosm/kg (275-300); UREA NITROGEN 17 mg/dL (7-18)
[2020-03-02 12:28] LABS: BASOPHILS 0.1 % (0-2); EOSINOPHILS 0.3 % (0-7); HEMATOCRIT 48.2 % (42.0-54.0); HEMOGLOBIN 15.9 g/dL (13.5-17.5); IMMATURE GRANULOCYTES 0.2 % (0-5); LYMPHOCYTES 6.9 % (15-50); MCH 32.1 pg (26.0-34.0); MEAN PLATELET VOLUME 9.9 fL (7.4-10.4); MONOCYTES 8.7 % (2-11); NEUTROPHILS 83.8 % (40-80); PLATELET COUNT 217 10x3/uL (130-400); RBC 4.95 10x6/uL (4.20-6.10); RDW 13.3 % (11.5-14.5); WBC 12.1 10x3/uL (4.8-10.8)
[2020-03-02 12:31] VITALS: BP 137/74
[2020-03-02 12:40] LABS: MCV 97.4 fL (80.0-100.0)
[2020-03-02 17:31] VITALS: BP 135/78
--- NOTE | 2020-03-02 19:20 | NUR ---
ASSUMED CARE OF PATIENT AT 1900, PATIENT AAOX4, NO DISTRESS NOTED, APARNA DRAIN COMPRESSED, GALE DRAINING WITHOUT COMPLICATIONS, IV INFUSING WITHOUT COMPLICATIONS, EPIDURAL INTACT, WILL CONTINUE TO MONITOR PATIENT, CALL LIGHT WITHIN REACH, FAMILY X1 AT BEDSIDE
[2020-03-02 22:24] VITALS: BP 144/79
[2020-03-03 01:13] VITALS: BP 136/70
[2020-03-03 06:14] VITALS: BP 141/71
[2020-03-03 06:31] LABS: BASOPHILS 0.1 % (0-2); EOSINOPHILS 1.4 % (0-7); HEMATOCRIT 46.3 % (42.0-54.0); HEMOGLOBIN 14.3 g/dL (13.5-17.5); IMMATURE GRANULOCYTES 0.4 % (0-5); LYMPHOCYTES 9.1 % (15-50); MCH 30.2 pg (26.0-34.0); MCHC 30.9 g/dL (31.0-37.0); MCV 97.7 fL (80.0-100.0); MONOCYTES 8.1 % (2-11); NEUTROPHILS 80.9 % (40-80); PLATELET COUNT 194 10x3/uL (130-400); RBC 4.74 10x6/uL (4.20-6.10); RDW 13.3 % (11.5-14.5); WBC 9.9 10x3/uL (4.8-10.8)
[2020-03-03 07:18] LABS: ALBUMIN 2.3 g/dL (3.4-5.0); ALKALINE PHOSPHATASE 50 U/L (30-120); ALT (SGPT) 22 U/L (10-68); BILIRUBIN - TOTAL 0.55 mg/dL (0.2-1.3); CALC OSMOLALITY 282 mosm/kg (275-300); CARBON DIOXIDE 24.2 mmol/L (21.0-32.0); CHLORIDE - SERUM 108 mmol/L (98-107); CREATININE - SERUM 0.7 mg/dL (0.6-1.3); GLUCOSE 94 mg/dL (74-106); MAGNESIUM - SERUM 2.1 mg/dL (1.8-2.4); POTASSIUM - SERUM 4.4 mmol/L (3.5-5.1); PROTEIN - SERUM 5.1 g/dL (6.4-8.2); SODIUM 141 mmol/L (136-145); UREA NITROGEN 18 mg/dL (7-18); eGFR NON AFRICAN AMERICAN > 90 mL/min (90-120)
--- NOTE | 2020-03-03 08:15 | NUR ---
PATIENT IN BED WITH IV INTACT. NO COMPLAINTS OR SIGNS OF DISTRESS. HAVING BMS. ABDOMEN NOT DISTENDED YESTERDAY EVENING. APARNA DRAIN AND INCISIONS INTACT. CALL LIGHT WITHIN REACH.
[2020-03-03 09:50] VITALS: BP 140/71
--- NOTE | 2020-03-03 11:40 | NUR ---
PATIENT IN BED WITH IV INTACT. NO COMPLAINTS. EPIDURAL ON AND WORKING. SCDS OFF. APARNA DRAIN INTACT. FAMILY AT BEDSIDE. CALL LIGHT WITHIN REACH.
[2020-03-03 13:12] VITALS: BP 128/67
[2020-03-03 16:00] VITALS: BP 126/66
--- NOTE | 2020-03-03 20:04 | NUR ---
PATIENT RESTING QUIETLY VISITING WITH SPOUSE, REQUESTED APPLE JUICE, APARNA DRAIN COMPRESSED, GALE DRAINING VIA GRAVITY WITH GREEN TINGE WITHOUT COMPLICATIONS, WILL CONTINUE TO MONITOR PATIENT, CALL LIGHT WITHIN REACH
[2020-03-03 21:14] VITALS: BP 144/69
[2020-03-04 01:21] VITALS: BP 151/74
[2020-03-04 06:02] LABS: BASOPHILS 0.2 % (0-2); EOSINOPHILS 0.8 % (0-7); HEMATOCRIT 45.2 % (42.0-54.0); HEMOGLOBIN 14.8 g/dL (13.5-17.5); IMMATURE GRANULOCYTES 0.5 % (0-5); LYMPHOCYTES 5.5 % (15-50); MCH 31.2 pg (26.0-34.0); MCHC 32.7 g/dL (31.0-37.0); MEAN PLATELET VOLUME 9.7 fL (7.4-10.4); MONOCYTES 6.9 % (2-11); NEUTROPHILS 86.1 % (40-80); RBC 4.74 10x6/uL (4.20-6.10); RDW 12.8 % (11.5-14.5)
[2020-03-04 06:11] LABS: MCV 95.4 fL (80.0-100.0); PLATELET COUNT 235 10x3/uL (130-400)
[2020-03-04 06:17] VITALS: BP 162/83
[2020-03-04 06:38] LABS: ALBUMIN 2.4 g/dL (3.4-5.0); ALKALINE PHOSPHATASE 52 U/L (30-120); ALT (SGPT) 18 U/L (10-68); BILIRUBIN - TOTAL 0.62 mg/dL (0.2-1.3); CALC OSMOLALITY 272 mosm/kg (275-300); CALCIUM 7.8 mg/dL (8.5-10.1); CARBON DIOXIDE 22.9 mmol/L (21.0-32.0); CHLORIDE - SERUM 103 mmol/L (98-107); CREATININE - SERUM 0.6 mg/dL (0.6-1.3); GLUCOSE 88 mg/dL (74-106); MAGNESIUM - SERUM 1.8 mg/dL (1.8-2.4); POTASSIUM - SERUM 3.8 mmol/L (3.5-5.1); PROTEIN - SERUM 5.4 g/dL (6.4-8.2); SODIUM 137 mmol/L (136-145); eGFR NON AFRICAN AMERICAN > 90 mL/min (90-120)
[2020-03-04 06:40] LABS: UREA NITROGEN 12 mg/dL (7-18)
[2020-03-04 08:00] VITALS: BP 154/75
[2020-03-04 12:18] VITALS: BP 146/75
[2020-03-04 16:26] VITALS: BP 155/77
--- NOTE | 2020-03-04 19:03 | NUR ---
PATIENT IN BED WITH IV INTACT. APARNA DRAIN AND GALE INTACT. UP AMBULATING IN REDDY SEVERAL TIMES TODAY WITH . NO COMPLAINTS. TOLERATING SMALL AMOUNT OF CLEARS. CALL LIGHT WITHIN REACH.
[2020-03-04 22:11] VITALS: BP 136/64
[2020-03-05 01:38] VITALS: BP 155/87
[2020-03-05 05:43] VITALS: BP 131/73
[2020-03-05 06:53] LABS: BASOPHILS 0.1 % (0-2); EOSINOPHILS 4.1 % (0-7); HEMATOCRIT 44.5 % (42.0-54.0); IMMATURE GRANULOCYTES 0.3 % (0-5); MCH 31.6 pg (26.0-34.0); MCHC 33.7 g/dL (31.0-37.0); MCV 93.9 fL (80.0-100.0); MEAN PLATELET VOLUME 9.6 fL (7.4-10.4); MONOCYTES 9.7 % (2-11); NEUTROPHILS 75.8 % (40-80); PLATELET COUNT 245 10x3/uL (130-400); RBC 4.74 10x6/uL (4.20-6.10); RDW 12.4 % (11.5-14.5)
[2020-03-05 07:11] LABS: ALBUMIN 2.4 g/dL (3.4-5.0); ALKALINE PHOSPHATASE 55 U/L (30-120); ALT (SGPT) 23 U/L (10-68); BILIRUBIN - TOTAL 0.74 mg/dL (0.2-1.3); CALC OSMOLALITY 266 mosm/kg (275-300); CALCIUM 7.9 mg/dL (8.5-10.1); CARBON DIOXIDE 28.6 mmol/L (21.0-32.0); CHLORIDE - SERUM 99 mmol/L (98-107); CREATININE - SERUM 0.7 mg/dL (0.6-1.3); GLUCOSE 93 mg/dL (74-106); POTASSIUM - SERUM 3.6 mmol/L (3.5-5.1); PROTEIN - SERUM 5.8 g/dL (6.4-8.2); SODIUM 134 mmol/L (136-145); UREA NITROGEN 10 mg/dL (7-18); eGFR NON AFRICAN AMERICAN > 90 mL/min (90-120)
--- NOTE | 2020-03-05 07:55 | NUR ---
LAYING IN BED WATCHING TV CONVERSING WITH AT BEDSIDE. NO ACUTE DISTRESS NOTED. JUST RECEIVED PRN PAIN MEDICATIONS. BED IN LOWEST POSITION, LOCKED, SIDE RAILS UP X2. CALL LIGHT WITHIN REACH. NEEDS ANTICIPATED AND MET. WILL CONTINUE TO MONITOR
[2020-03-05 09:11] VITALS: BP 136/82
[2020-03-05] MEDS ORDERED: COLACE100 MG PO (10:00)
[2020-03-05] MEDS ORDERED: ULTRAM50 MG PO (10:01)
[2020-03-05] MEDS ORDERED: BAYER ASPIRIN325 MG PO (11:12)
[2020-03-05 12:25] VITALS: BP 154/87
--- NOTE | 2020-03-05 13:13 | MORECARE ---
CASE MANAGEMENT DISCHARGE SUMMARY PATIENT: CONCETTA ALICEA UNIT: [id number] ADM DATE: 02/29/20 AGE: 64 : 57 SEX: M ROOM/BED: D.2216 AUTHOR: TYRONE LITTLE PHYSICIAN: REFERRING PHYSICIAN: ZOILA CHAVARRIA MD DATE OF SERVICE: 03/05/20 Discharge Plan Patient Name: CONCTETA ALICEA [facility] [facility] 1955 Planned Disposition: Home or Self Care Anticipated Discharge Date: Discharge Date: Expected LOS: Initial Reviewer: [email or web address] Initial Review Date: 02/29/2020 Generated: 03/05/20 2:13 pm DCPIA - Discharge Planning Initial Assessment Updated by [email or web address]: Norah Cesar on 03/05/20 1:13 pm * Is the patient Alert and Oriented? Yes * How many steps to enter\exit or inside your home? * PCP MAINOR * [facility] * Preadmission Environment Home with Family * ADLs Independent * Equipment None * List name and contact numbers for known caregivers / representatives who currently or will assist patient after discharge: SIA ( ) [phone] * Verbal permission to speak to the caregivers and representatives has been obtained from the patient. N/A * Community resources currently utilized None * Additional services required to return to the preadmission environment? No * Can the patient safely return to the preadmission environment? Yes * Has this patient been hospitalized within the prior 30 days at any hospital? No Patient Name: CONCETTA ALICEA Page [id number] at 1313 All edits/amendments must be made on the electronic document DICTATION DATE: 03/05/20 1313 IRON AND STEEL WORK SUPERVISOR: CARTER 03/05/20 1313 RPT#: [id number] DC DATE: STATUS: ADM IN [facility] [address] [place] [address] END OF REPORT
--- NOTE | 2020-03-05 13:23 | MORECARE ---
CASE MANAGEMENT DISCHARGE SUMMARY PATIENT: CONCETTA ALICEA UNIT: [id number] ADM DATE: 02/29/20 AGE: 64 : 57 SEX: M ROOM/BED: D.2216 AUTHOR: TYRONE LITTLE PHYSICIAN: REFERRING PHYSICIAN: ZOILA CHAVARRIA MD DATE OF SERVICE: 03/05/20 Discharge Plan Patient Name: CONCETTA ALICEA Facility: [facility]:[place] : 1955 Planned Disposition: Home or Self Care Anticipated Discharge Date: Discharge Date: Expected LOS: Initial Reviewer: [email or web address] Initial Review Date: 02/29/2020 Generated: 03/05/20 2:22 pm Comments DCP- Discharge Planning Updated by [email or web address]: Norah Cesar on 03/05/20 12:[address] Patient Name: CONCETTA ALICEA Admission Status: Elective Accout number: [id number] Admission Date: 02-29-2020 : 1955 Admission Diagnosis:MALIGNANT NEOPLASM OF SIGMOID COLON Attending: ZOILA CHAVARRIA Current LOS: 5 Anticipated DC Date: Planned Disposition: Home or Self Care Primary Insurance: [place] [employer] [place] Discharge Planning Comments: CM met with patient to complete initial dc planning assessment. CM educated patient on the CM role and verbal consent given by patient to complete assessment. Patient lives at home with his where he is independent with his care. At discharge patient plans to return home today and feels this is a safe discharge. CM discussed availability of home health, rehab services, and medical equipment. Patient denied known discharge needs at this time. 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 CM will continue to follow and will assist as needed with dc plans/needs. Painter Maintenance: Norah Cesar DCPIA - Discharge Planning Initial Assessment Updated by [email or web address]: Norah Cesar on 03/05/20 1:13 pm * Is the patient Alert and Oriented? Yes * How many steps to enter\exit or inside your home? * PCP MAINOR * Pharmacy [facility] * Preadmission Environment Home with Family * ADLs Independent * Equipment None * List name and contact numbers for known caregivers / representatives who currently or will assist patient after discharge: SIA ( ) [phone] * Verbal permission to speak to the caregivers and representatives has been obtained from the patient. N/A * Community resources currently utilized None * Additional services required to return to the preadmission environment? No * Can the patient safely return to the preadmission environment? Yes * Has this patient been hospitalized within the prior 30 days at any hospital? No Last DP export: 03/05/20 12:13 p Patient Name: CONCETTA ALICEA Page [phone] at 1323 All edits/amendments must be made on the electronic document DICTATION DATE: 03/05/20 1322 PHOTOGRAPHER AERIAL: CARTER 03/05/20 1322 RPT#: [id number] DC DATE: STATUS: ADM IN [facility] [address] [place] [address] END OF REPORT
--- NOTE | 2020-03-05 15:12 | NUR ---
@ 1440: REVIEWED DISCHARGE AND EDUCATION INFO WITH PATIENT. RECEIVED WELL. NO ACUTE DISTRESS NOTED. TRANSPORTED TO [facility] VIA . TOLERATED WELL. TAKEN HOME BY VIA PERSONAL VEHICLE.
--- NOTE | 2020-03-06 15:13 | OP ---
PATIENT NAME: CONCETTA ALICEA MEDICAL RECORD: [id number] :57 LOCATION:D.MS [place] ADMISSION DATE:02/29/20 SURGEON: ZOILA CHAVARRIA MD DATE OF OPERATION: 02/29/2020 PREOPERATIVE DIAGNOSES: 1. Adenomatous polyp with high-grade dysplasia at 50 cm. 2. Invasive adenocarcinoma of the sigmoid colon at 20 cm. POSTOPERATIVE DIAGNOSES: 1. Adenomatous polyp with high-grade dysplasia at 50 cm. 2. Invasive adenocarcinoma of the sigmoid colon at 20 cm. 3. Extensive intra-abdominal adhesions also bulbous tip to the appendix, somewhat suspicious for an intraluminal polyp. PROCEDURE: 1. Hand-assisted laparoscopic surgery - sigmoid colectomy. 2. Appendectomy. SURGEON: Zoila Chavarria MD ALARM MECHANISM ADJUSTER: Héctor Evangelista upholstery technician. BLOOD LOSS: 50 cc. ANESTHESIA: General. COMPLICATIONS: None. DRAINS: Times 1, 10-Israeli. The risks, possible complications, and alternatives to the procedure were explained to the patient. He elects to proceed. The discussion specifically included, but was not limited to, bleeding requiring emergency reoperation, infection, possible need for a colostomy. The patient is a Anabaptist and will not accept any blood products even if it means that he will without blood products. OPERATIVE COURSE: The patient was conveyed to the operating room electively on 02/29/2020. General anesthesia was induced by the anesthesia staff. The abdomen was sterilely prepped and draped. A small skin randy was accomplished in the left upper quadrant. A Veress needle was inserted through the skin randy. CO2 insufflation was begun. The pressures were higher than I would expect, so this approach was abandoned. Utilizing the Optiview device, I entered the peritoneal cavity through the same small incision in the left upper quadrant. CO2 insufflation was begun. Once I inserted the camera, I identified there were extensive intraabdominal adhesions. I went around to the right side of the abdomen. Three 5-mm trocars were placed. I began a meticulous adhesiolysis. No full thickness enterotomies occurred. Most of the adhesions were grade II adhesions. The adhesions were numerous and their position could easily lead to a bowel obstruction. Also, I need to release these adhesions in order to be able to move around in the abdomen to see where the tattoos were that marked the lesions that need to be resected. The adhesiolysis took 45 minutes. Once I had released all the adhesions, two OPERATIVE REPORT [id number] CONCETTA ALICEA 5-mm trocars were inserted into the left side of the abdomen. I leaned the patient far laterally to the right. I incised along the left white line of Toldt. This aided in improved mobility of the left side of the colon. I identified both tattooed areas. They both appeared to involve the sigmoid colon and there was enough redundancy in the sigmoid colon that I felt that we could remove both of these at one time without performing a colon resection and then a colotomy with excision of the polyp with high-grade dysplasia. A transverse incision was accomplished in the pannicular crease. Sharp dissection was carried through skin and subcutaneous tissues as well as Ada fascia. I incised the anterior fascia transversely. Subfascial divisions were accomplished cephalad and caudad with Hagen scissors. I identified the mid portion of the rectus muscles. I incised through here. I identified the peritoneum and stay sutures of 0 Vicryl were placed on either side of the peritoneum. I entered the peritoneal cavity sharply. A Garrett retractor was placed. I performed some hand dissection on the left side of the colon in order to increase mobility. The intersigmoid fossa was identified and I divided here. I identified the left ureter, which was retracted during the operation for its protection. I began to run the small bowel. All the small bowel that I was able to run through this low incision reveal no inflammatory changes and no full thickness enterotomies. I identified the appendix. It was a lengthy. It had an odd appearance in that the end of the appendix had bulbar portion to it. We noted that this patient makes lots of polyps. I was somewhat fearful that this may contain an intraluminal polyp and as such the polyp might be diagnosed at the late stage such as if it becomes a malignancy. For that reason, I elected to remove the appendix. A window was created in the mesoappendix. I took down the mesoappendix with the laparoscopic EnSeal device. I then stapled across the tip of the cecum with a TALIB-75 staple utilizing blue loads. Attention was then turned to excision of the sigmoid colon. My proximal extent of the resection was proximal to the proximal tattoo. I was able to feel the polyp at this site. A window was created in the mesocolon. I stapled across the colon at this site with a TALIB-75 stapler. I chose the distal extent of my resection at the junction of the sigmoid colon and rectum where the taenia splayed out. A window was created in the mesorectum and I stapled across the colon here with a TALIB-75 stapler. This was distal to the tattoo, which marked the malignancy. The interposed mesentery was taken down with the Super Jaw EnSeal device. The specimen was then opened on the back table. It was marked. It was sent to the pathologist for frozen section examination, which revealed that the distal margin was free. I regowned and regloved. I irrigated and aspirated. There was no bleeding. I was able to mobilize some of the omentum and tried to bring it down to the pelvis; however, it would not reach all the way down there. I placed the antimesenteric borders of the descending colon and the rectum in apposition side by side and sutured them in place with a row of 3-0 Vicryls. A small colotomy OPERATIVE REPORT [id number] CONCETTA ALICEA and small proctotomy were performed. Anvils of the GI 75 stapler were advanced and then fired. The resulting colorectal defect was then closed with single firing of the TA 60 stapler. I then imbricated the TA 60 staple line with multiple interrupted horizontal mattress 3-0 Vicryl sutures. I irrigated and aspirated. There was no bleeding. As the patient is Anabaptist, I want a lot of advance notice should she develop bleeding. For this reason, I advanced a 10-Israeli fully fluted closed suction drain down through one of the left-sided trocars. The Garrett retractor and the trocars were removed. The drain was sutured to skin with a silk suture. I then reperitonealized through the lower transverse incision with running #1 Vicryls. The rectus muscles were approximated in the midline with multiple interrupted horizontal mattress #1 Vicryls. The anterior fascia was closed with running looped #1 PDS. Ada fascia was approximated with interrupted 3-0 Vicryls. The subdermis was approximated with interrupted 3-0 Vicryls. The skin was approximated with a running intracuticular 3-0 Vicryl. At the trocar sites, skin was closed with interrupted intracuticular 3-0 Vicryls. Benzoin and Steri-Strips were applied. The patient was then extubated and conveyed to post-anesthesia care unit. Due to the need for monitoring any hemorrhage that may occur through this indicator drain or indirect signs of hemorrhage such as hypotension, the patient is going to be watched in the intensive care unit overnight. TRANSINT:[id number] Voice Confirmation ID: [id number] DOCUMENT ID: [id number] ZOILA CHAVARRIA MD at 1513 CC: [id number] DICTATION DATE: 02/29/201958 MANAGER ASSET: 02/29/20 2318 [facility] IN 03/05/[id number] [place] [address]
--- NOTE | 2020-03-07 14:50 | MORECARE ---
CASE MANAGEMENT DISCHARGE SUMMARY PATIENT: CONCETTA ALICEA UNIT: [id number] ADM DATE: 02/29/20 AGE: 64 : 57 SEX: M ROOM/BED: D.2216 AUTHOR: TYRONE LITTLE PHYSICIAN: REFERRING PHYSICIAN: ZOILA CHAVARRIA MD DATE OF SERVICE: 03/07/20 Discharge Plan Patient Name: CONCETTA ALICEA Facility: [facility]:[place] : 1955 Planned Disposition: Home or Self Care Anticipated Discharge Date: Discharge Date: 03/05/2020 Expected LOS: Initial Reviewer: [email or web address] Initial Review Date: 02/29/2020 Generated: 03/07/20 3:49 pm Comments DCP- Discharge Planning Updated by [email or web address]: Norah Cesar on 03/05/20 12:[address] Patient Name: CONCETTA ALICEA Admission Status: Elective Accout number: [id number] Admission Date: 02-29-2020 : 1955 Admission Diagnosis:MALIGNANT NEOPLASM OF SIGMOID COLON Attending: ZOILA CHAVARRIA Current LOS: 5 Anticipated DC Date: Planned Disposition: Home or Self Care Primary Insurance: [place] [employer] [facility] Discharge Planning Comments: CM met with patient to complete initial dc planning assessment. CM educated patient on the CM role and verbal consent given by patient to complete assessment. Patient lives at home with his where he is independent with his care. At discharge patient plans to return home today and feels this is a safe discharge. CM discussed availability of home health, rehab services, and medical equipment. Patient denied known discharge needs at this time. 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 CM will continue to follow and will assist as needed with dc plans/needs. Industrial Robotics Mechanic: Norah Cesar DCPIA - Discharge Planning Initial Assessment Updated by [email or web address]: Norah Cesar on 03/05/20 1:13 pm * Is the patient Alert and Oriented? Yes * How many steps to enter\exit or inside your home? * PCP MAINOR * [facility] * Preadmission Environment Home with Family * ADLs Independent * Equipment None * List name and contact numbers for known caregivers / representatives who currently or will assist patient after discharge: SIA ( ) [phone] * Verbal permission to speak to the caregivers and representatives has been obtained from the patient. N/A * Community resources currently utilized None * Additional services required to return to the preadmission environment? No * Can the patient safely return to the preadmission environment? Yes * Has this patient been hospitalized within the prior 30 days at any hospital? No Last DP export: 03/05/20 12:23 p Patient Name: CONCETTA ALICEA Page [id number] at 1450 All edits/amendments must be made on the electronic document DICTATION DATE: 03/07/201449 PIPED POCKET MACHINE OPERATOR: CARTER 03/07/20 1450 RPT#: [id number] DC DATE:03/05/20 STATUS: DIS IN [facility] [address] [place] [address] END OF REPORT
== END 2020-03-05 15:02 | disposition home or self-care (01) | DRG 331 ==
LOC: D.ICU 02-29 07:48 → D.MS 02-29 07:48 → D.SDCHOLD 02-29 07:48 → D.ICU 02-29 17:44 → D.MS 03-01 13:20
PROVIDERS: Anesthesiology; Family Medicine; ADMIT Surgery; ATTEND Surgery
PROC: 0DTN0ZZ Resection of Sigmoid Colon, Open Approach (ICD-10-PCS; principal; 2020-02-29 10:00)
PROC: 0DTJ0ZZ Resection of Appendix, Open Approach (ICD-10-PCS; 2020-02-29 10:00)
DX: C18.7 Malignant neoplasm of sigmoid colon (principal); K66.0 Peritoneal adhesions (postprocedural) (postinfection); D12.6 Benign neoplasm of colon, unspecified

== ENCOUNTER → 2020-02-28 16:31 | Outpatient (CLI) | payer BC ==
[2020-02-10 07:42] VITALS: BMI 33.0
[~2020-02-28 16:31] MED LIST changes: +FERROUS SULFAT325 MG PO
== END | disposition home or self-care (01) ==
LOC: D.LABREF 16:31
PROVIDERS: ATTEND Surgery
DX: Z11.59 Encounter for screening for other viral diseases (principal)

== ENCOUNTER 2020-03-05 22:51 | Inpatient (IN) | payer MEDICAID ==
[~2020-03-05] VITALS: Ht 175.3 cm; Wt 99.8 kg
[~2020-03-05 22:51] MED LIST changes: +BAYER ASPIRIN325 MG PO; +COLACE100 MG PO; +ULTRAM50 MG PO
[2020-03-05 23:53] LABS: HEMATOCRIT 46.5 % (42.0-54.0); LYMPHOCYTES 4.9 % (15-50); MCH 31.9 pg (26.0-34.0); MCHC 34.4 g/dL (31.0-37.0); MCV 92.8 fL (80.0-100.0); MEAN PLATELET VOLUME 9.2 fL (7.4-10.4); NEUTROPHILS 85.7 % (40-80); RBC 5.01 10x6/uL (4.20-6.10); RDW 12.6 % (11.5-14.5)
[2020-03-05 23:54] LABS: PLATELET COUNT 303 10x3/uL (130-400); WBC 8.9 10x3/uL (4.8-10.8)
[2020-03-06 00:03] LABS: BILIRUBIN NEGATIVE (NEGATIVE); KETONE LARGE mg/dL (NEGATIVE); NITRITE NEGATIVE (NEGATIVE); UROBILINOGEN NORMAL mg/dL (< 2)
[2020-03-06 00:03] LABS: CALC OSMOLALITY 259 mosm/kg (275-300); CALCIUM 8.5 mg/dL (8.5-10.1); CARBON DIOXIDE 32.1 mmol/L (21.0-32.0); CHLORIDE - SERUM 93 mmol/L (98-107); CREATININE - SERUM 0.8 mg/dL (0.6-1.3); GLUCOSE 127 mg/dL (74-106); POTASSIUM - SERUM 3.3 mmol/L (3.5-5.1); SODIUM 129 mmol/L (136-145); UREA NITROGEN 10 mg/dL (7-18); eGFR NON AFRICAN AMERICAN > 90 mL/min (90-120)
[2020-03-06 00:04] LABS: BACTERIA FEW /HPF (NONE SEEN); EPITHELIAL CELLS 0-5 /hpf (0-5); WHITE CELLS - URINE 0-5 HPF (0-1)
[2020-03-06 00:08] LABS: ALBUMIN 2.9 g/dL (3.4-5.0); ALKALINE PHOSPHATASE 69 U/L (30-120); ALT (SGPT) 27 U/L (10-68); LIPASE 120 U/L (73-393); PROTEIN - SERUM 6.7 g/dL (6.4-8.2)
--- NOTE | 2020-03-06 02:45 | NUR ---
NGT PLACED VIA L NARE. TOLERATED WELL. 300CC DARK GREEN/BROWN LIQUID REMOVED PER LIS
--- NOTE | 2020-03-06 03:30 | NUR ---
COVID SWAB SENT TAKEN LAB
[2020-03-06 03:31] VITALS: BP 127/78; BMI 32.5
[2020-03-06 04:00] VITALS: BP 124/79
[2020-03-06 08:36] VITALS: BP 146/83
--- NOTE | 2020-03-06 11:47 | NUR ---
PT RETURNED FROM [facility] FOLLOW THROUGH, SPOUSE CAME TO DESK CONCERNED THAT PT ABD IS GETTING MORE DISTENDED AD THAT PT NEEDS TO HAVE NGT HOOKED BACK UP, PT IS TO HAVE ANOTHER PICTURE DONE IN 30 MINUTES, ASKED THEM TO ALLOW SUFFICIENT TIME FOR TEST TO BE COMPLETED. PER SPOUSE, CONCERNED THAT TEST IS DOING MORE HARM TO PATIENT THEN GOOD. CALLED MEDICAL IMAGING TO SPEAK TO TECH AND HAD TO LEAVE MESSAGE
[2020-03-06 12:17] LABS: BASOPHILS 0.1 % (0-2); EOSINOPHILS 0.5 % (0-7); HEMATOCRIT 46.3 % (42.0-54.0); HEMOGLOBIN 15.7 g/dL (13.5-17.5); IMMATURE GRANULOCYTES 0.3 % (0-5); LYMPHOCYTES 7.1 % (15-50); MCH 31.7 pg (26.0-34.0); MCHC 33.9 g/dL (31.0-37.0); MCV 93.5 fL (80.0-100.0); MEAN PLATELET VOLUME 9.5 fL (7.4-10.4); MONOCYTES 10.3 % (2-11); NEUTROPHILS 81.7 % (40-80); PLATELET COUNT 279 10x3/uL (130-400); RBC 4.95 10x6/uL (4.20-6.10); RDW 12.6 % (11.5-14.5); WBC 7.6 10x3/uL (4.8-10.8)
[2020-03-06 12:39] VITALS: BP 137/87
--- NOTE | 2020-03-06 13:40 | NUR ---
I have reviewed this patient and I concur with the Shift Assessment completed by the Licensed Practical Nurse today this shift.
[2020-03-06 14:02] VITALS: BMI 32.5
--- NOTE | 2020-03-06 14:34 | NUR ---
PT REQUESTED ZOFRAN, PT STATED WHEN HE BURPS HE CAN TASTE THE CONTRAST, ADMINISTERED PRN ZOFRAN, NO OTHER NEEDS AT THIS TIME. COTNINUE WITH PLAN OF CARE
[2020-03-06 16:47] VITALS: Ht 175.3 cm; Wt 99.8 kg
[2020-03-06 17:20] VITALS: BP 145/86
--- NOTE | 2020-03-06 19:00 | NUR ---
ASSUMED CARE OF PATIENT, PATIENT STATED THAT EARLIER IN AFTERNOON WENT TO BATHROOM WITHOUT ASSIST AND SLIPPED BUT CAUGHT SELF WITH BAR BESIDE STOOL, DID NOT FALL TO THE FLOOR, PULLED RIBS, PATIENT STATES HE IS OK, RESP EVEN AND NONLABORED, O2@3L VIA NC IN USE, REFUSES SCD'S AND TELE, WILL CONTINUE TO MONITOR PATIENT, CALL LIGHT WITHIN REACH
[2020-03-06 20:00] VITALS: BP 126/78
[2020-03-07] VITALS: BP 148/79
--- NOTE | 2020-03-07 02:29 | NUR ---
PATIENT OOB AMBULATING HALLS, PATIENT AMBULATED 2X AROUND NURSES STATION, PATIENT TOLERATED WELL, PATIENT HAD SMALL FORMED BM, PATIENT C/O HICCUPS, NG AT LIWS, IV INFUSING WITHOUT COMPLICATIONS, FAMILY X1 AT BS, WILL CONTINUE TO MONITOR PATIENT, CALL LIGHT WITHIN REACH
[2020-03-07 06:37] LABS: BASOPHILS 0.2 % (0-2); HEMOGLOBIN 15.4 g/dL (13.5-17.5); IMMATURE GRANULOCYTES 1.3 % (0-5); LYMPHOCYTES 12.5 % (15-50); MCH 31.7 pg (26.0-34.0); MCHC 33.5 g/dL (31.0-37.0); MCV 94.7 fL (80.0-100.0); MEAN PLATELET VOLUME 9.7 fL (7.4-10.4); MONOCYTES 10.2 % (2-11); NEUTROPHILS 71.8 % (40-80); PLATELET COUNT 293 10x3/uL (130-400); RBC 4.86 10x6/uL (4.20-6.10); RDW 12.9 % (11.5-14.5); WBC 8.2 10x3/uL (4.8-10.8)
[2020-03-07 06:48] LABS: CALC OSMOLALITY 275 mosm/kg (275-300); CALCIUM 7.7 mg/dL (8.5-10.1); CARBON DIOXIDE 27.9 mmol/L (21.0-32.0); CHLORIDE - SERUM 101 mmol/L (98-107); CREATININE - SERUM 0.9 mg/dL (0.6-1.3); GLUCOSE 84 mg/dL (74-106); POTASSIUM - SERUM 3.7 mmol/L (3.5-5.1); SODIUM 138 mmol/L (136-145); eGFR NON AFRICAN AMERICAN > 90 mL/min (90-120)
[2020-03-07 06:54] LABS: UREA NITROGEN 14 mg/dL (7-18)
[2020-03-07 08:50] VITALS: BP 143/86
[2020-03-07 12:44] VITALS: BP 148/80
--- NOTE | 2020-03-07 15:11 | NUR ---
I have reviewed this patient and I concur with the Shift Assessment completed by the Licensed Practical Nurse today this shift.
[2020-03-07 16:57] VITALS: BP 147/89
--- NOTE | 2020-03-07 17:24 | NUR ---
PT SITTING UP IN BED PREPARING FOR DINNER, PATIENT STATES HE HAS HAD SEVERAL BM'S. SPOUSE AT BEDSIDE, NO OTHER NEEDS VOICED AT THIS TIME. CONTINUE WITH PLAN OF CARE
[2020-03-07 20:00] VITALS: BP 134/84
--- NOTE | 2020-03-08 02:52 | NUR ---
I have reviewed this patient and I concur with the Shift Assessment completed by the Licensed Practical Nurse today this shift.
--- NOTE | 2020-03-08 02:53 | NUR ---
I have reviewed this patient and I concur with the Shift Assessment completed by the Licensed Practical Nurse today this shift.
[2020-03-08 04:00] VITALS: BP 147/81
[2020-03-08 05:35] LABS: BASOPHILS 0.2 % (0-2); EOSINOPHILS 3.6 % (0-7); HEMATOCRIT 42.5 % (42.0-54.0); HEMOGLOBIN 14.5 g/dL (13.5-17.5); IMMATURE GRANULOCYTES 1.1 % (0-5); LYMPHOCYTES 14.3 % (15-50); MCH 32.2 pg (26.0-34.0); MCHC 34.1 g/dL (31.0-37.0); MCV 94.2 fL (80.0-100.0); MEAN PLATELET VOLUME 9.5 fL (7.4-10.4); MONOCYTES 10.3 % (2-11); NEUTROPHILS 70.5 % (40-80); PLATELET COUNT 276 10x3/uL (130-400); RBC 4.51 10x6/uL (4.20-6.10); RDW 12.9 % (11.5-14.5); WBC 8.2 10x3/uL (4.8-10.8)
[2020-03-08 06:05] LABS: ALBUMIN 2.3 g/dL (3.4-5.0); ALKALINE PHOSPHATASE 54 U/L (30-120); ALT (SGPT) 31 U/L (10-68); BILIRUBIN - TOTAL 0.63 mg/dL (0.2-1.3); CALC OSMOLALITY 271 mosm/kg (275-300); CALCIUM 7.9 mg/dL (8.5-10.1); CARBON DIOXIDE 25.9 mmol/L (21.0-32.0); CHLORIDE - SERUM 104 mmol/L (98-107); CREATININE - SERUM 0.7 mg/dL (0.6-1.3); GLUCOSE 89 mg/dL (74-106); POTASSIUM - SERUM 3.6 mmol/L (3.5-5.1); PROTEIN - SERUM 5.3 g/dL (6.4-8.2); SODIUM 137 mmol/L (136-145); UREA NITROGEN 9 mg/dL (7-18); eGFR NON AFRICAN AMERICAN > 90 mL/min (90-120)
[2020-03-08 08:51] VITALS: BP 160/88
--- NOTE | 2020-03-08 11:27 | NUR ---
PATIENT WALKING AROUND WITH SPOUSE AT SIDE. NO S/SX OF DISTRESS, PATIENT STATED HE HAS HAD A BM THIS MORNING, VOICED NO NEEDS AT THIS TIME. CONTINUE WITH PLAN OF CARE
[2020-03-08 12:02] VITALS: BP 140/83
--- NOTE | 2020-03-08 12:51 | NUR ---
Nutrition follow-up: Pt advanced to full liquids with po intake ~50% of last 2 meals KUB still with partial SBO Labs reviewed Wt: 219# +BM RDN following.
--- NOTE | 2020-03-08 13:48 | MORECARE ---
CASE MANAGEMENT DISCHARGE SUMMARY PATIENT: CONCETTA ALICEA UNIT: [id number] ADM DATE: 03/06/20 AGE: 64 : 57 SEX: M ROOM/BED: D.2219 AUTHOR: TYRONE LITTLE PHYSICIAN: REFERRING PHYSICIAN: ROSENDO VILLELA MD DATE OF SERVICE: 03/08/20 Discharge Plan Patient Name: CONCETTA ALICEA [facility] [facility] 1955 Planned Disposition: Home or Self Care Anticipated Discharge Date: Discharge Date: Expected LOS: Initial Reviewer: [email or web address] Initial Review Date: 03/06/2020 Generated: 03/08/20 2:47 pm DCPIA - Discharge Planning Initial Assessment Updated by [email or web address]: Norah Cesar on 03/08/20 1:45 pm * Is the patient Alert and Oriented? Yes * PCP MAINOR * [facility] [address] * Preadmission Environment Home with Family * ADLs Independent * Equipment None * List name and contact numbers for known caregivers / representatives who currently or will assist patient after discharge: SIA ( ) [phone] * Verbal permission to speak to the caregivers and representatives has been obtained from the patient. N/A * Community resources currently utilized None * Additional services required to return to the preadmission environment? No * Can the patient safely return to the preadmission environment? Yes * Has this patient been hospitalized within the prior 30 days at any hospital? Yes Patient Name: CONCETTA ALICEA Page [id number] at 1348 All edits/amendments must be made on the electronic document DICTATION DATE: 03/08/20 1347 MUSEUM HOST/HOSTESS: CARTER 03/08/20 1347 RPT#: [id number] DC DATE: STATUS: ADM IN [facility] [address] [place] [address] END OF REPORT
--- NOTE | 2020-03-08 13:58 | MORECARE ---
CASE MANAGEMENT DISCHARGE SUMMARY PATIENT: CONCETTA ALICEA UNIT: [id number] ADM DATE: 03/06/20 AGE: 64 : 57 SEX: M ROOM/BED: D.2219 AUTHOR: TYRONE LITTLE PHYSICIAN: REFERRING PHYSICIAN: ROSENDO VILLELA MD DATE OF SERVICE: 03/08/20 Discharge Plan Patient Name: CONCETTA ALICEA Facility: [facility]:[place] : 1955 Planned Disposition: Home or Self Care Anticipated Discharge Date: Discharge Date: Expected LOS: Initial Reviewer: [email or web address] Initial Review Date: 03/06/2020 Generated: 03/08/20 2:57 pm Comments DCP- Discharge Planning Updated by [email or web address]: Norah Cesar on 03/08/20 12:[address] Patient Name: CONCETTA ALICEA Admission Status: ER Accout number: [id number] Admission Date: 03-06-2020 : 1955 Admission Diagnosis:UNSP INTESTNL OBST, UNSP TO PARTIAL VERSUS COMPLETE Attending: ROSENDO VILLELA Current LOS: 2 Anticipated DC Date: Planned Disposition: Home or Self Care Primary Insurance: [place] [employer] [facility] Discharge Planning Comments: CM met with patient to complete initial dc planning assessment. CM educated patient on the CM role and verbal consent given by patient to complete assessment. Patient lives at home with his where he is independent with his care. At discharge patient plans to return home and feels this is a safe discharge. CM discussed availability of home health, rehab services, and medical equipment. He does not need anything. 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 Patient denied known discharge needs at this time. CM will continue to follow and will assist as needed with dc plans/needs Journeyman Power Plant Operator: Norah Cesar DCPIA - Discharge Planning Initial Assessment Updated by [email or web address]: Norah Cesar on 03/08/20 1:45 pm * Is the patient Alert and Oriented? Yes * PCP MAINOR * [facility] [address] * Preadmission Environment Home with Family * ADLs Independent * Equipment None * List name and contact numbers for known caregivers / representatives who currently or will assist patient after discharge: SIA ( ) [phone] * Verbal permission to speak to the caregivers and representatives has been obtained from the patient. N/A * Community resources currently utilized None * Additional services required to return to the preadmission environment? No * Can the patient safely return to the preadmission environment? Yes * Has this patient been hospitalized within the prior 30 days at any hospital? Yes Last DP export: 03/08/20 12:48 p Patient Name: CONCETTA ALICEA Page 82019 at 1358 All edits/amendments must be made on the electronic document DICTATION DATE: 03/08/20 1359 STATEMENT CLERKS MANAGER: CARTER 03/08/20 1357 RPT#: [id number] DC DATE: STATUS: ADM IN [facility] [address] [place] [address] END OF REPORT
[2020-03-08 16:49] VITALS: BP 148/86
--- NOTE | 2020-03-08 18:45 | NUR ---
I have reviewed this patient and I concur with the Shift Assessment completed by the Licensed Practical Nurse today this shift.
[2020-03-08 20:00] VITALS: BP 118/82
[2020-03-09] VITALS: BP 125/73
--- NOTE | 2020-03-09 03:10 | NUR ---
I have reviewed this patient and I concur with the Shift Assessment completed by the Licensed Practical Nurse today this shift.
[2020-03-09 04:00] VITALS: BP 136/80
[2020-03-09 05:19] LABS: BASOPHILS 0.3 % (0-2); EOSINOPHILS 3.7 % (0-7); HEMATOCRIT 43.6 % (42.0-54.0); HEMOGLOBIN 14.4 g/dL (13.5-17.5); IMMATURE GRANULOCYTES 1.5 % (0-5); LYMPHOCYTES 17.6 % (15-50); MEAN PLATELET VOLUME 9.5 fL (7.4-10.4); MONOCYTES 9.6 % (2-11); NEUTROPHILS 67.3 % (40-80); PLATELET COUNT 302 10x3/uL (130-400); RBC 4.64 10x6/uL (4.20-6.10); RDW 12.9 % (11.5-14.5); WBC 9.6 10x3/uL (4.8-10.8)
[2020-03-09 05:42] LABS: ALBUMIN 2.4 g/dL (3.4-5.0); ALKALINE PHOSPHATASE 58 U/L (30-120); ALT (SGPT) 39 U/L (10-68); BILIRUBIN - TOTAL 0.36 mg/dL (0.2-1.3); CALC OSMOLALITY 275 mosm/kg (275-300); CALCIUM 8.2 mg/dL (8.5-10.1); CARBON DIOXIDE 27.2 mmol/L (21.0-32.0); CHLORIDE - SERUM 105 mmol/L (98-107); CREATININE - SERUM 0.8 mg/dL (0.6-1.3); GLUCOSE 102 mg/dL (74-106); POTASSIUM - SERUM 3.6 mmol/L (3.5-5.1); PROTEIN - SERUM 5.6 g/dL (6.4-8.2); SODIUM 139 mmol/L (136-145); UREA NITROGEN 7 mg/dL (7-18); eGFR NON AFRICAN AMERICAN > 90 mL/min (90-120)
--- NOTE | 2020-03-09 08:00 | NUR ---
ASSESSMENT PER FLOW SHEET. PATIENT IS WITHOUT DISTRESS. DENIES PAIN AT PRESENT.CALL LIGHT IN REACH.
[2020-03-09 08:51] VITALS: BP 135/71
[2020-03-09 12:36] VITALS: BP 132/78
[2020-03-09 16:56] VITALS: BP 126/69
--- NOTE | 2020-03-09 18:35 | NUR ---
REMAINS WITHOUT NAUSEA AND OR VOMITING.WITHOUT CHANGE. CONT PLAN OF CARE
--- NOTE | 2020-03-09 19:00 | NUR ---
RECEIVED REPORT, ASSUMED CARE, IV PATENT, DENIES NEEDS, NO S/S OF DISTRESS NOTED, BED LOWEST POSITION, CALL LIGHT IN REACH, COFFEE SHOP MANAGER INFUSING, AT BEDSIDE, WALKING AROUND UNIT INDEPENDENTLY
[2020-03-09 20:16] VITALS: BP 143/81
[2020-03-10 00:55] VITALS: BP 154/85
--- NOTE | 2020-03-10 04:16 | NUR ---
I have reviewed this patient and I concur with the Shift Assessment completed by the Licensed Practical Nurse today this shift.
[2020-03-10 05:07] VITALS: BP 129/79
[2020-03-10 06:40] LABS: BASOPHILS 0.6 % (0-2); EOSINOPHILS 4.9 % (0-7); HEMATOCRIT 42.8 % (42.0-54.0); HEMOGLOBIN 14.4 g/dL (13.5-17.5); IMMATURE GRANULOCYTES 2.2 % (0-5); LYMPHOCYTES 17.8 % (15-50); MCH 31.9 pg (26.0-34.0); MCHC 33.6 g/dL (31.0-37.0); MCV 94.9 fL (80.0-100.0); NEUTROPHILS 65.5 % (40-80); PLATELET COUNT 313 10x3/uL (130-400); RBC 4.51 10x6/uL (4.20-6.10)
[2020-03-10 06:45] LABS: ALBUMIN 2.5 g/dL (3.4-5.0); ALKALINE PHOSPHATASE 55 U/L (30-120); ALT (SGPT) 38 U/L (10-68); BILIRUBIN - TOTAL 0.37 mg/dL (0.2-1.3); CALC OSMOLALITY 271 mosm/kg (275-300); CALCIUM 8.3 mg/dL (8.5-10.1); CARBON DIOXIDE 25.5 mmol/L (21.0-32.0); CHLORIDE - SERUM 104 mmol/L (98-107); CREATININE - SERUM 0.6 mg/dL (0.6-1.3); GLUCOSE 93 mg/dL (74-106); POTASSIUM - SERUM 3.8 mmol/L (3.5-5.1); PROTEIN - SERUM 5.5 g/dL (6.4-8.2); SODIUM 137 mmol/L (136-145); UREA NITROGEN 7 mg/dL (7-18); eGFR NON AFRICAN AMERICAN > 90 mL/min (90-120)
--- NOTE | 2020-03-10 07:55 | NUR ---
PATIENT WALKING AROUND WITH SPOUSE, AWAITING DC ORDERS, PATIENT IS READY TO GO HOME. NO OTHER NEEDS VOICED, WILL DC IV SO PATIENT CAN GET DRESSED
[2020-03-10 08:12] VITALS: BP 114/81
--- NOTE | 2020-03-12 09:03 | MORECARE ---
CASE MANAGEMENT DISCHARGE SUMMARY PATIENT: CONCETTA ALICEA UNIT: [id number] ADM DATE: 03/06/20 AGE: 64 : 57 SEX: M ROOM/BED: D.2219 AUTHOR: TYRONE LITTLE PHYSICIAN: REFERRING PHYSICIAN: ROSENDO VILLELA MD DATE OF SERVICE: 03/12/20 Discharge Plan Patient Name: CONCETTA ALICEA Facility: [facility]:[place] : 1955 Planned Disposition: Home or Self Care Anticipated Discharge Date: Discharge Date: 03/10/2020 Expected LOS: Initial Reviewer: [email or web address] Initial Review Date: 03/06/2020 Generated: 03/12/20 10:02 am DCP- Discharge Planning Updated by [email or web address]: Norah Cesar on 03/08/20 12:[address] Patient Name: CONCETTA ALICEA Admission Status: ER Accout number: [id number] Admission Date: 03-06-2020 : 1955 Admission Diagnosis:UNSP INTESTNL OBST, UNSP TO PARTIAL VERSUS COMPLETE Attending: ROSENDO VILLELA Current LOS: 2 Anticipated DC Date: Planned Disposition: Home or Self Care Primary Insurance: [place] [employer] [facility] Discharge Planning Comments: CM met with patient to complete initial dc planning assessment. CM educated patient on the CM role and verbal consent given by patient to complete assessment. Patient lives at home with his where he is independent with his care. At discharge patient plans to return home and feels this is a safe discharge. CM discussed availability of home health, rehab services, and medical equipment. He does not need anything. 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 Patient denied known discharge needs at this time. CM will continue to follow and will assist as needed with dc plans/needs Instrumentation Controls Engineer: Norah Cesar DCPIA - Discharge Planning Initial Assessment Updated by [email or web address]: Norah Cesar on 03/08/20 1:45 pm * Is the patient Alert and Oriented? Yes * PCP MAINOR * [facility] [address] * Preadmission Environment Home with Family * ADLs Independent * Equipment None * List name and contact numbers for known caregivers / representatives who currently or will assist patient after discharge: SIA ( ) [phone] * Verbal permission to speak to the caregivers and representatives has been obtained from the patient. N/A * Community resources currently utilized None * Additional services required to return to the preadmission environment? No * Can the patient safely return to the preadmission environment? Yes * Has this patient been hospitalized within the prior 30 days at any hospital? Yes Last DP export: 03/08/20 12:58 p Patient Name: CONCETTA ALICEA Page 97004 at 0903 All edits/amendments must be made on the electronic document DICTATION DATE: 03/12/20902 OFFSET PRESS ASSISTANT: CARTER 03/12/20902 RPT#: [id number] DC DATE:03/10/20 STATUS: DIS IN [facility] [address] [place] [address] END OF REPORT
== END 2020-03-10 10:12 | disposition home or self-care (01) | DRG 389 ==
LOC: D.ER 22:51 → D.MS 03-06 02:52
PROVIDERS: Emergency Medicine; ADMIT Family Medicine; ATTEND Family Medicine
DX: K56.609 Unspecified intestinal obstruction, unspecified as to partial versus complete obstruction (principal); E87.1 Hypo-osmolality and hyponatremia; N40.0 Benign prostatic hyperplasia without lower urinary tract symptoms; N20.0 Calculus of kidney; E87.6 Hypokalemia

== ENCOUNTER 2020-09-19 10:46 | Day surgery (SDC) | payer BC ==
[~2020-09-19] VITALS: Ht 175.3 cm; Wt 82.3 kg
[2020-09-19 11:13] LABS: HEMATOCRIT 50.9 % (42.0-54.0); HEMOGLOBIN 17.2 g/dL (13.5-17.5); MCH 31.7 pg (26.0-34.0); MCHC 33.8 g/dL (31.0-37.0); MCV 93.9 fL (80.0-100.0); MEAN PLATELET VOLUME 9.6 fL (7.4-10.4); RBC 5.42 10x6/uL (4.20-6.10); RDW 13.4 % (11.5-14.5); WBC 6.8 10x3/uL (4.8-10.8)
[2020-09-19] MEDS ORDERED: MAG-OXIDE400 MG (12:38)
[2020-09-19 12:50] VITALS: BP 151/72; Ht 175.3 cm; Wt 82.3 kg
--- NOTE | 2020-09-19 17:36 | NUR ---
1735 HEMOCLIPS X2 TO CECAL POLY REMOVAL.
--- NOTE | 2020-09-19 17:47 | NUR ---
1746 ONE HEMORRHOID POLYP ABLATED WITH HOT BX, NO SPECIMEN.
--- NOTE | 2020-09-19 18:49 | NUR ---
1845 IV REMOVED AND INSTRUCTIONS GIVEN
--- NOTE | 2020-09-20 09:44 | OP ---
PATIENT NAME: CONCETTA ALICEA MEDICAL RECORD: [id number] :[birth year] LOCATION:D.OPS ADMISSION DATE: SURGEON: ASAF CHAVARRIA MD DATE OF OPERATION: 09/19/2020 PREOPERATIVE DIAGNOSIS: History of adenocarcinoma of colon, in need of surveillance colonoscopy. POSTOPERATIVE DIAGNOSES: 1. History of adenocarcinoma of colon, in need of surveillance colonoscopy. 2. Two new colon polyps. One is a sessile polyp within the cecum and is 1.5 cm polyp on a fold. The other is a 6 mm sessile polyp. PROCEDURES: 1. Total colonoscopy to cecum. 2. Hot biopsy forceps polypectomies times 2. 3. Placement of 2 endoscopic clips within the cecum at the polypectomy site to control the postoperative hemorrhage and also for tissue reinforcement. SURGEON: Asaf Chavarria MD. METAL WEIGHER: None. BLOOD LOSS: Minimal. ANESTHESIA: IV sedation. COMPLICATIONS: None. The risks, possible complications, and alternatives of the procedure were explained to the patient. He elects to proceed. ENDOSCOPIC COURSE: The patient was taken to the endoscopy suite electively on 09/19/2020. IV sedation was induced by the anesthesia staff. The patient was placed in the Villar position. A digital rectal examination was performed. A colonoscope was inserted through the anus. It was easily advanced to the cecum. The prep was adequate. In the cecum, I noted a polyp on a fold. This was removed in its entirety utilizing the hot biopsy forceps polypectomy technique. I then deployed 2 endoscopic clips for tissue reinforcement and to control postoperative hemorrhage. I then continued to withdraw the endoscope. I dragged the folds. The pullback was greater than a 16-minute pullback. I irrigated and aspirated extensively. I utilized normal imaging as well as narrow band imaging to visualize the tabor of the colon and rectum. A retroflexed view was obtained in the rectum. I then unretroflexed the scope and removed it under direct vision. I will see the patient in my office in 2-3 weeks. I will plan for his next surveillance colonoscopy to take place in 3 years. TRANSINT:[id number] Voice Confirmation ID: [id number] DOCUMENT ID: [id number] OPERATIVE REPORT [id number] DEANNECONCETTA ASAF MAGUIRE MD at 0944 CC: [id number] DICTATION DATE: 09/19/20 1757 TOPOLOGY PROFESSOR: 09/20/20 0041 [facility] 09/19/20 [place] [id number] [place] [id number]
== END 2020-09-19 19:00 | disposition home or self-care (01) ==
LOC: D.OPS 10:46
PROVIDERS: Anesthesiology; ATTEND Surgery
DX: K63.5 Polyp of colon (principal); Z85.038 Personal history of other malignant neoplasm of large intestine; D50.9 Iron deficiency anemia, unspecified